=== PATIENT | male | born 1960 | race Caucasian/White ===

== ENCOUNTER 2017-04-11 19:22 | Inpatient (IN) | payer MEDICARE ==
[2017-04-11] MEDS ORDERED: DEXTROSE 5% IN WATER 50 ML BAG ONE (19:33)
[2017-04-11] MEDS ORDERED: AMIODARONE 50 MG/ML 3 ML VIAL IV ONE (19:33)
[2017-04-11] MEDS ORDERED: ASPIRIN 300 MG SUPP RECTAL STA (19:38)
[2017-04-11 19:54] LABS: CH 33.7; CHCM 35.7; HCT 47.8 % (39.0-53.0); HDW 2.65; HGB 17.2 gm/dL (13.0-17.5); MCH 34.1 pg (25.0-35.0); MCV 94.7 fL (80.0-100.0); Mean Platelet Volume 7.5; RBC 5.05 m/uL (4.30-5.90); RDW 12.9 % (11.5-15.5)
[2017-04-11] MEDS ORDERED: MIDAZOLAM HCL 100 MG in SODIUM CHLORIDE 0.9% 80 ML IV ONE (19:54)
[2017-04-11] MEDS ORDERED: fentaNYL (PF) 2,500 MCG in SODIUM CHLORIDE 0.9% 200 ML IV SCH (20:00)
[2017-04-11 20:03] LABS: Partial Thromboplastin Time 22.7 sec (22.0-30.0); Prothrombin Time 10.5 sec (9.0-12.0)
[2017-04-11] MEDS ORDERED: NALOXONE 0.4 MG/ML 1 ML VIAL IV PRN (20:07)
[2017-04-11] MEDS ORDERED: IV FLUID CONTINUATION 1,000 ML IV ONE (20:10)
[2017-04-11 20:13] LABS: ALT 57 U/L (21-72); AST 32 U/L (17-59); Alkaline Phosphatase 75 U/L (38-126); Anion Gap 12 mmol/L; Blood Urea Nitrogen 17 mg/dL (9-20); Calcium 9.8 mg/dL (8.4-10.2); Carbon Dioxide 27 mmol/L (22-30); Chloride 102 mmol/L (98-107); Glucose 106 mg/dL (74-99); Non-African American GFR(MDRD) >60 (>60 ml/min/1.73 sqM); Sodium 141 mmol/L (137-145); Total Bilirubin 0.8 mg/dL (0.2-1.3); Total Protein 7.2 g/dL (6.3-8.2)
[2017-04-11] MEDS ORDERED: MIDAZOLAM 2 MG/2 ML VIAL IVP ONE (20:13)
[2017-04-11] MEDS ORDERED: fentaNYL (PF) 50 MCG/ML 2 ML AMP IVP ONE (20:14)
[2017-04-11] MEDS ORDERED: SODIUM CHLORIDE 0.9% 1,000 ML IV ONE (20:15)
[2017-04-11] MEDS ORDERED: SODIUM CHLORIDE 0.9% 500 ML IV ONE (20:15)
[2017-04-11] MEDS ORDERED: NOREPINEPHRIN 4 MG-0.9% NS PMX 4 MG/250 ML ML IV ONE (20:20)
--- NOTE | 2017-04-11 20:23 | XR ---
EXAMINATION TYPE: XR chest 1V DATE OF EXAM: 04/11/2017 COMPARISON: NONE HISTORY: Tube placement TECHNIQUE: Single frontal view of the chest is obtained. FINDINGS: Endotracheal tube is in good position. Lungs are clear. There is no heart failure. Nasogas tric tube has tip in the gastric fundus. There are chest leads. IMPRESSION: No active cardiopulmonary disease.
[2017-04-11] MEDS ORDERED: LIDOCAINE 2% INJ 20 MG/ML SQ ONE (20:30)
[2017-04-11] MEDS ORDERED: BIVALIRUDIN BOLUS 250 MG/50 ML IV ONE (20:36)
[2017-04-11] MEDS ORDERED: BIVALIRUDIN 250 MG in SODIUM CHLORIDE 0.9% 50 ML IV ONE (20:37)
[2017-04-11] MEDS ORDERED: PRASUGREL 10 MG TAB ONE (21:05)
--- NOTE | 2017-04-11 21:05 | ED ---
General Adult HPI - General Chief complaint: Chest Pain Stated complaint: chest pain Time Seen by Provider: 04/11/17 19:45 Source: patient, family, RN notes reviewed Mode of arrival: wheelchair Limitations: no limitations - History of Present Illness Initial comments: 56-year-old male with history of tobacco use and hypercholesterolemia presents for evaluation of left anterior substernal chest tightness, nausea and diaphoresis. This began approximately 30 minutes prior to arrival. Time of my initial evaluation 1926. EKG obtained at that time shows acute VT. STEMI code was activated. Remainder of the history was limited secondary to clinical condition. - Related Data Home Medications Medication Instructions Recorded Confirmed HYDROcodone/APAP 10-325MG [[place] 1 tab PO Q6H PRN 08/09/15 04/11/17 10-325] Atorvastatin Calcium [Lipitor] 10 mg PO DAILY 04/11/17 04/11/17 Allergies Allergy/AdvReac Type Severity Reaction Status Date / Time latex Allergy Rash/Hives Verified 04/11/17 19:59 Penicillins Allergy Unknown Verified 04/11/17 19:59 Review of Systems ROS Statement: Those systems with pertinent positive or pertinent negative responses have been documented in the HPI. Limitations: ROS unobtainable due to patients medical condition Past Medical History Past Medical History: GERD/Reflux, Hypertension Additional Past Medical History / Comment(s): UMBILICAL HERNIA, SKIN TO FINGERS PEELS, current belles palsy History of Any Multi-Drug Resistant Organisms: None Reported Past Surgical History: Appendectomy, Hernia Repair Additional Past Surgical History / Comment(s): LT LOWER ABD HERNIA REPAIR Past Anesthesia/Blood Transfusion Reactions: Motion Sickness Additional Past Anesthesia/Blood Transfusion Reaction / Comment(s): STATES "MOTHER HAS PONV" Past Psychological History: No Psychological Hx Reported Smoking Status: Current every day smoker - Past Family History Father Family Medical History: Congestive Heart Failure (CHF) Mother Family Medical History: Cancer Additional Family Medical History / Comment(s): SKIN General Exam Limitations: no limitations General appearance: alert, in distress Head exam: Present: atraumatic, normocephalic Eye exam: Present: normal appearance, PERRL ENT exam: Present: normal exam, mucous membranes moist Respiratory exam: Present: normal lung sounds bilaterally. Absent: respiratory distress Cardiovascular Exam: Present: regular rate, normal rhythm GI/Abdominal exam: Present: soft. Absent: distended, tenderness Extremities exam: Present: normal capillary refill. Absent: pedal edema Neurological exam: Present: alert, oriented X3 Psychiatric exam: Present: normal affect, normal mood, anxious Skin exam: Present: warm, diaphoretic Course Vital Signs 04/11/17 19:25 Temperature 98 F Pulse Rate 71 Respiratory 20 Rate Blood Pressure 166/109 O2 Sat by Pulse 100 Oximetry EKG Findings - EKG Comments: EKG Findings:: EKG obtained at 1926 shows acute inferior STEMI with reciprocal change, rate of 70, MT interval 1:30, QS duration 100, QTC 404, repeat EKG status post V. fib arrest obtained at 1936 shows acute inferior VT with reciprocal change, ventricular 90, MT interval 98, QRS duration 100, QTC 396. Procedures - Intubation Time Out Performed: Yes Sedative: Etomidate Paralytic: Succinylcholine Laryngoscope: Mario Alberto Size: 4 ET Tube Size: 7.5 ET Tube Uncuffed: Yes Tube Secured Depth (cm): 23 Tube Secured Location: lips Tube Placement Confirmation: visualized tube passing through cords, equal breath sounds bilaterally, confirmation by capnometry Patient Tolerated Procedure: well Intubation Complications: none Medical Decision Making - Medical Decision Making 56-year-old male presenting with acute inferior VT. Initial EKG obtained at 1926, cathode washer activated at 1928. Creatinine initial evaluation, the patient to become unresponsive, posturing, was noted to be in V. fib arrest, chest compressions were initiated immediately, patient was defibrillated with 200 J. He was loaded with 300 mg of amiodarone. Patient did return to normal sinus rhythm, became somewhat more responsive, however he was vomiting and was intubated for airway protection. Patient was placed on sedation emergency department awaiting cardiac intervention. He was loaded with heparin, given rectal aspirin. Case was discussed with cardiology on-call. Diagnosis: Inferior STEMI, V. fib arrest, ventricular respiratory failure - Lab Data Result diagrams: 04/11/17 19:50 04/11/17 19:50 Lab Results 04/11/17 04/11/17 04/11/17 Range/Units 19:50 19:50 19:50 WBC 8.0 (3.8-10.6) k/uL RBC 5.05 (4.30-5.90) m/uL Hgb 17.2 (13.0-17.5) gm/dL Hct 47.8 (39.0-53.0) % MCV 94.7 (80.0-100.0) fL MCH 34.1 (25.0-35.0) pg MCHC 36.0 (31.0-37.0) g/dL RDW 12.9 (11.5-15.5) % Plt Count 193 (150-450) k/uL PT (9.0-12.0) sec INR (<1.2) APTT (22.0-30.0) sec Sodium 141 (137-145) mmol/L Potassium 4.0 (3.5-5.1) mmol/L Chloride 102 (98-107) mmol/L Carbon Dioxide 27 (22-30) mmol/L Anion Gap 12 mmol/L BUN 17 (9-20) mg/dL Creatinine 1.05 (0.66-1.25) mg/dL Est GFR (MDRD) Af Amer >60 (>60 ml/min/1.73 sqM) Est GFR (MDRD) Non-Af >60 (>60 ml/min/1.73 sqM) Glucose 106 H (74-99) mg/dL Calcium 9.8 (8.4-10.2) mg/dL Total Bilirubin 0.8 (0.2-1.3) mg/dL AST 32 (17-59) U/L ALT 57 (21-72) U/L Alkaline Phosphatase 75 (38-126) U/L Troponin I 0.016 (0.000-0.034) ng/mL Total Protein 7.2 (6.3-8.2) g/dL Albumin 4.6 (3.5-5.0) g/dL 04/11/17 Range/Units 19:50 WBC (3.8-10.6) k/uL RBC (4.30-5.90) m/uL Hgb (13.0-17.5) gm/dL Hct (39.0-53.0) % MCV (80.0-100.0) fL MCH (25.0-35.0) pg MCHC (31.0-37.0) g/dL RDW (11.5-15.5) % Plt Count (150-450) k/uL PT 10.5 (9.0-12.0) sec INR 1.0 (<1.2) APTT 22.7 (22.0-30.0) sec Sodium (137-145) mmol/L Potassium (3.5-5.1) mmol/L Chloride (98-107) mmol/L Carbon Dioxide (22-30) mmol/L Anion Gap mmol/L BUN (9-20) mg/dL Creatinine (0.66-1.25) mg/dL Est GFR (MDRD) Af Amer (>60 ml/min/1.73 sqM) Est GFR (MDRD) Non-Af (>60 ml/min/1.73 sqM) Glucose (74-99) mg/dL Calcium (8.4-10.2) mg/dL Total Bilirubin (0.2-1.3) mg/dL AST (17-59) U/L ALT (21-72) U/L Alkaline Phosphatase (38-126) U/L Troponin I (0.000-0.034) ng/mL Total Protein (6.3-8.2) g/dL Albumin (3.5-5.0) g/dL Critical Care Time Critical Care Time: Yes Total Critical Care Time: 35 Disposition Clinical Impression: ST elevation myocardial infarction (STEMI) Disposition: ADMITTED IP TO THIS [facility] Condition: Serious Decision to Admit Reason: Admit from EC
[2017-04-11] MEDS ORDERED: PRASUGREL 10 MG TAB OG-TUBE ONE (21:12)
[2017-04-11] MEDS ORDERED: NITROGLYCERIN SL TABS 0.4 MG TAB SUBLINGUAL PRN (21:18)
[2017-04-11] MEDS ORDERED: ATROPINE SULFATE 0.1 MG/ML 10ML SYRINGE IV PRN (21:18)
[2017-04-11] MEDS ORDERED: ZOLPIDEM 5 MG TAB PO PRN (21:18)
[2017-04-11] MEDS ORDERED: RX INFO: IV CONTRAST WAS GIVEN 1 EACH MISC MISCELLANE PRN (21:18)
[2017-04-11] MEDS ORDERED: MAG HYDROX/AL HYDROX/SIMETH 30 ML CUP PO PRN (21:18)
--- NOTE | 2017-04-11 21:26 | P.CRDCN ---
History of Present Illness Consult date: 04/11/17 History of present illness: This is a 56-year-old gentleman who presented to the emergency room complaining of chest discomfort and was diagnosed with acute inferior ST elevation myocardial infarction. In the ER he developed cardiac arrest was V. fib and he was converted to normal sinus mechanism. 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 Currently the patient is intubated and he is on ventilator. Beside that he is on propofol drip because he was very agitated. According to his family, the patient has hypertension and dyslipidemia and he is a smoker. 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 He has no residual CAD involving the LAD or the RCA. The patient is going to be admitted to the intensive care unit. Wet Wash Assembler will be consulted to see the patient and manage the ventilator. Currently he is hemodynamically unstable and he is requiring small dose of Levophed and thus likely to be related to propofol inducing the hypotension. He is on dual antiplatelet therapy with aspirin as well as Effient. He is also on statin. I will hold any kind of beta julius until he is off the Levophed. Beside that I'll obtain an echocardiogram was Doppler. Past Medical History Past Medical History: GERD/Reflux, Hypertension Additional Past Medical History / Comment(s): UMBILICAL HERNIA, SKIN TO FINGERS PEELS, current belles palsy History of Any Multi-Drug Resistant Organisms: None Reported Past Surgical History: Appendectomy, Hernia Repair Additional Past Surgical History / Comment(s): LT LOWER ABD HERNIA REPAIR Past Anesthesia/Blood Transfusion Reactions: Motion Sickness Additional Past Anesthesia/Blood Transfusion Reaction / Comment(s): STATES "MOTHER HAS PONV" Past Psychological History: No Psychological Hx Reported Smoking Status: Current every day smoker - Past Family History Father Family Medical History: Congestive Heart Failure (CHF) Mother Family Medical History: Cancer Additional Family Medical History / Comment(s): SKIN Medications and Allergies Home Medications Medication Instructions Recorded Confirmed Type HYDROcodone/APAP 10-325MG [[place] 1 tab PO Q6H PRN 08/09/15 04/11/17 History 10-325] Atorvastatin Calcium [Lipitor] 10 mg PO DAILY 04/11/17 04/11/17 History Allergies Allergy/AdvReac Type Severity Reaction Status Date / Time latex Allergy Rash/Hives Verified 04/11/17 19:59 Penicillins Allergy Unknown Verified 04/11/17 19:59 Physical Exam Vitals: Vital Signs Temp Pulse Resp BP Pulse Ox 04/11/17 20:37 103 H 143/66 97 04/11/17 19:25 98 F 71 20 166/109 100 Intake and Output 04/11/17 04/11/17 04/11/17 06:59 14:59 22:59 Other: Weight 108.862 kg Patient Weight 04/12/17 06:59 Weight 108.862 kg - Constitutional General appearance: no acute distress - Respiratory Respiratory: bilateral: CTA - Cardiovascular Rhythm: regular Heart sounds: normal: S1, S2 Results 04/11/17 19:50 04/11/17 19:50 Cardiac Enzymes 04/11/17 04/11/17 Range/Units 19:50 19:50 AST 32 (17-59) U/L Troponin I 0.016 (0.000-0.034) ng/mL Coagulation 04/11/17 Range/Units 19:50 PT 10.5 (9.0-12.0) sec APTT 22.7 (22.0-30.0) sec CBC 04/11/17 Range/Units 19:50 WBC 8.0 (3.8-10.6) k/uL RBC 5.05 (4.30-5.90) m/uL Hgb 17.2 (13.0-17.5) gm/dL Hct 47.8 (39.0-53.0) % Plt Count 193 (150-450) k/uL Comprehensive Metabolic Panel 04/11/17 Range/Units 19:50 Sodium 141 (137-145) mmol/L Potassium 4.0 (3.5-5.1) mmol/L Chloride 102 (98-107) mmol/L Carbon Dioxide 27 (22-30) mmol/L BUN 17 (9-20) mg/dL Creatinine 1.05 (0.66-1.25) mg/dL Glucose 106 H (74-99) mg/dL Calcium 9.8 (8.4-10.2) mg/dL AST 32 (17-59) U/L ALT 57 (21-72) U/L Alkaline Phosphatase 75 (38-126) U/L Total Protein 7.2 (6.3-8.2) g/dL Albumin 4.6 (3.5-5.0) g/dL Current Medications Generic Name Dose Route Start Last Admin Trade Name Freq PRN Reason Stop Dose Admin Al Hydroxide/Mg Hydroxide 30 ml 04/11/17 21:18 Maalox PO Q4HR PRN Heartburn Aspirin 325 mg 04/12/17 09:00 Aspirin PO DAILY PENDING SALE TO [facility] Atorvastatin Calcium 80 mg 04/12/17 21:00 Lipitor PO HS GISELE Atropine Sulfate 0.5 mg 04/11/17 21:18 Atropine IV ONCE PRN Symptomatic Bradycardia Fentanyl Citrate 2,500 mcg/ 250 mls @ 7.5 mls/hr 04/11/17 20:00 Sodium Chloride IV .Q24H GISELE 75 MCG/HR Midazolam HCl 100 mg/ Sodium 100 mls @ 2 mls/hr 04/11/17 19:54 Chloride IV 04/12/17 19:53 .Q24H ONE Protocol 2 MG/HR Sodium Chloride 1,000 mls @ 100 mls/hr 04/11/17 21:30 Saline 0.9% IV 04/12/17 05:31 .Q10H PENDING SALE TO [facility] Miscellaneous Information 1 each 04/11/17 21:18 Rx Info: Iv Contrast Was Given MISCELLANE 04/13/17 21:18 DAILY PRN Per Protocol Naloxone HCl 0.2 mg 04/11/17 20:07 Narcan IV Q2M PRN Opioid Reversal Nitroglycerin 0.4 mg 04/11/17 21:18 Nitrostat SUBLINGUAL Q5M PRN Chest Pain Prasugrel 10 mg 04/12/17 21:19 Effient PO DAILY PENDING SALE TO [facility] Zolpidem Tartrate 5 mg 04/11/17 21:18 Ambien PO HS PRN Insomnia Intake and Output 04/11/17 04/11/17 04/11/17 06:59 14:59 22:59 Other: Weight 108.862 kg Patient Weight 04/12/17 06:59 Weight 108.862 kg 04/11/17 19:50 04/11/17 19:50 Assessment and Plan Plan: Assessment Acute inferior ST elevation myocardial infarction Significant history of smoking Acute respiratory failure Hypotension Plan Status post PCI of the LCx Dual antiplatelet therapy and statin ICU admission and consult university administrator Wean him from the Levophed Echocardiogram was Doppler Follow-up with the patient
[2017-04-11] MEDS ORDERED: IODIXANOL 320 MG/ML 100 ML INTRAARTER ONE (21:30)
[2017-04-11] MEDS ORDERED: SODIUM CHLORIDE 0.9% 1,000 ML IV SCH (21:30)
[2017-04-11 22:04] LABS: Glucose,Whole Blood 115 mg/dL (75-99)
[2017-04-11] MEDS ORDERED: PROPOFOL 1,000 MG/100 ML VIAL IV ONE (22:18)
[2017-04-11] MEDS ORDERED: NOREPINEPHRIN 4 MG-0.9% NS PMX 4 MG/250 ML ML IV SCH (23:45)
[2017-04-12] MEDS: HEPARIN SODIUM,PORCINE 5,000 UNIT/ML 1 ML VIAL SQ SCH ×4 (01:22→20:05)
[2017-04-12] MEDS: PROPOFOL 1,000 MG/100 ML VIAL IV SCH ×3 (01:23→08:49)
[2017-04-12 02:44] VITALS: BMI 35.4
[2017-04-12 04:39] LABS: Basophils % (A) 0 %; CH 34.3; CHCM 34.8; Eosinophils # (A) 0.1 k/uL (0-0.7); Eosinophils % (A) 1 %; HDW 2.58; HGB 15.3 gm/dL (13.0-17.5); Luc # (Auto) 0.12; Luc % (Auto) 2; Lymphocytes # (A) 1.2 k/uL (1.0-4.8); Lymphocytes % (A) 16 %; MCH 33.1 pg (25.0-35.0); MCHC 33.3 g/dL (31.0-37.0); MCV 99.1 fL (80.0-100.0); Mean Platelet Volume 8.3; Monocytes # (A) 0.6 k/uL (0-1.0); Monocytes % (A) 8 %; Neutrophils # (A) 5.5 k/uL (1.3-7.7); Neutrophils % (A) 74 %; RBC 4.64 m/uL (4.30-5.90); RDW 14.1 % (11.5-15.5); WBC 7.5 k/uL (3.8-10.6); WBC (Perox) 6.97
[2017-04-12 04:50] LABS: Anion Gap 8 mmol/L; Blood Urea Nitrogen 16 mg/dL (9-20); Calcium 8.5 mg/dL (8.4-10.2); Carbon Dioxide 23 mmol/L (22-30); Chloride 108 mmol/L (98-107); Glucose 121 mg/dL (74-99); Magnesium 1.8 mg/dL (1.6-2.3); Non-African American GFR(MDRD) >60 (>60 ml/min/1.73 sqM); Phosphorous 3.6 mg/dL (2.5-4.5); Potassium 4.5 mmol/L (3.5-5.1); Sodium 139 mmol/L (137-145)
[2017-04-12 05:32] LABS: ABG Base Excess -1.2 mmol/L; ABG HCO3 23 mmol/L (21-25); ABG PCO2 38 mmHg (35-45); ABG PO2 115 mmHg (83-108); ABG TCO2 24 mmol/L (19-24)
--- NOTE | 2017-04-12 07:02 | XR ---
EXAMINATION TYPE: XR chest 1V portable DATE OF EXAM: 04/12/2017 HISTORY: Tube placement. REFERENCE: Previous study dated 04/11/2017. FINDINGS: The patient is ET tube and NG tube remain in place, unchanged in appearance. The heart is enlarged. There is mild peribronchial cuffing. There is some left basilar airspace disea se. I cannot exclude a small left effusion. IMPRESSION: WORSENING LEFT BASILAR AIRSPACE DISEASE.
[2017-04-12] MEDS: MAGNESIUM SULFATE-D5W PMX 1 GM in DEXTROSE/WATER 1 100ML.BAG IVPB SCH ×2 (07:15→08:48)
--- NOTE | 2017-04-12 08:47 | P.PN ---
Subjective Principal diagnosis: Acute inferior ST elevation [place] This is a pleasant 56-year-old gentleman with history of smoking and dyslipidemia who presented to the hospital with a chest discomfort and was diagnosed with acute inferior STEMI. 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 In the ER, the patient developed V. fib and he was converted as well as he was intubated. Currently the patient is intubated and he is on ventilator. Fishing Reel Assembler is on the case. Hemodynamically he is stable. I recommended continue the current medical treatment which included dual antiplatelet therapy and statin, I will start the patient on small dose of beta julius as well as TAVARES inhibitor, and we will follow-up with the echocardiogram which was performed Objective - Vital Signs Vital signs: Vital Signs Temp 98.3 F 04/12/17 04:00 Pulse 66 04/12/17 07:00 Resp 16 04/12/17 06:00 BP 121/77 04/12/17 07:00 Pulse Ox 98 04/12/17 07:00 Intake & Output 04/11/17 04/12/17 04/12/17 18:59 06:59 18:59 Intake Total 2364.886 100 Output Total 775 175 Balance 1589.886 -75 Weight 105 kg Intake: IV 2311 100 Magnesium Sulfate-D5w Pmx 100 1 gm In Dextrose/Water 1 100ml.bag @ 100 mls/hr IVPB Q1H GISELE Rx#: [id number] Sodium Chloride 0.9% 1, 800 000 ml @ 100 mls/hr IV . Q10H GISELE Rx#:[id number] Intake, IV Titration 53.886 Amount Propofol 1,000 mg In 100 53.886 ml @ Titrate IV .Q0M GISELE Rx#:[id number] Output: Urine 775 175 Other: Voiding Method Indwelling Catheter - Constitutional General appearance: Present: no acute distress - Respiratory Respiratory: bilateral: rales - Cardiovascular Rhythm: regular Heart sounds: normal: S1, S2 - Labs CBC & Chem 7: 04/12/17 04:12 04/12/17 04:12 Labs: Abnormal Lab Results - Last 24 Hours (Table) 04/11/17 04/11/17 04/12/17 Range/Units 19:50 22:02 04:12 ABG pO2 (83-108) mmHg ABG O2 Saturation (94-97) % Chloride 108 H (98-107) mmol/L Glucose 106 H 121 H (74-99) mg/dL POC Glucose (mg/dL) 115 H (75-99) mg/dL 04/12/17 Range/Units 04:50 ABG pO2 115 H (83-108) mmHg ABG O2 Saturation 99.0 H (94-97) % Chloride (98-107) mmol/L Glucose (74-99) mg/dL POC Glucose (mg/dL) (75-99) mg/dL Assessment and Plan Plan: Assessment Acute inferior ST elevation myocardial infarction Significant history of smoking Acute respiratory failure Plan Status post PCI of the LCx Dual antiplatelet therapy and statin Start metoprolol and lisinopril Follow-up on the echocardiogram
[2017-04-12 08:49] LABS: Amorphous Sediment,Urine Occasional /hpf; Appearance,Urine Turbid (Clear); Bilirubin,Urine Negative (Negative); Glucose,Urine (UA) Negative (Negative); Ketones,Urine Negative (Negative); Leukocyte Esterase,Urine Small (Negative); Mucus,Urine Few /hpf; Nitrite,Urine Negative (Negative); Particle Count 11406; Protein,Urine 1+ (Negative); Specific Gravity,Urine 1.044 (1.001-1.035); UA Billing (MACRO vs. MICRO) MICRO; Urobilinogen,Urine <2.0 mg/dL (<2.0); WBC,Urine 1 /hpf (0-5)
[2017-04-12] MEDS: ASPIRIN 325 MG TAB PO SCH (08:49)
[2017-04-12] MEDS ORDERED: CHLORHEXIDINE GLUCONATE 15 ML CUP MUCOUS MEM SCH (09:00)
[2017-04-12] MEDS ORDERED: PANTOPRAZOLE 40 MG/10 ML VIAL IV SCH (09:00)
[2017-04-12] MEDS: METOPROLOL TARTRATE 12.5 MG TAB PO SCH ×2 (09:09→20:01)
[2017-04-12] MEDS: LISINOPRIL 2.5 MG TAB PO SCH (09:09)
--- NOTE | 2017-04-12 11:11 | ECHOF ---
Referral Reason:stemi MEASUREMENTS -------- HEIGHT: 175.3 cm WEIGHT: 104.8 kg BP: 116/76 RVIDd: 2.4 cm (< 3.3) IVSd: 1.1 cm (0.6 - 1.1) LVIDd: 5.7 cm (3.9 - 5.3) LVPWd: 1.2 cm (0.6 - 1.1) IVSs: 1.7 cm LVIDs: 4.7 cm LVPWs: 1.6 cm LAESV Index (A-L): 12.73 ml/m Ao Diam: 3.9 cm (2.0 - 3.7) AV Cusp: 2.0 cm (1.5 - 2.6) LA Diam: 3.3 cm (2.7 - 3.8) MV EXCURSION: 24.295 mm (> 18.000) MV EF SLOPE: 193 mm/s (70 - 150) EPSS: 1.6 cm MV E Prashant: 0.58 m/s MV DecT: 232 ms MV A Prashant: 0.68 m/s MV E/A Ratio: 0.86 RAP: 5.00 mmHg RVSP: 11.86 mmHg FINDINGS -------- Sinus rhythm. This was a technically adequate study. There is borderline concentric left ventricular hypertrophy. Overall left ventricular systolic function is moderate-severely impaired with, an EF between 30 - 35 %. Mid lateral LV wall motion is hypokinetic. Mid posterior LV wall motion is hypokinetic. Inferiorlateral Hypokinesis The right ventricle is normal in size and function. Normal LA size by volume 22+/-6 ml/m2. The right atrium is normal in size. Aortic valve is trileaflet and is mildly thickened. There is no evidence of aortic regurgitation. There is no evidence of aortic stenosis. The mitral valve leaflets are mildly thickened. There is trace mitral regurgitation. Trace tricuspid regurgitation present. There is no evidence of pulmonary hypertension. The right ventricular systolic pressure, as measured by Doppler, is 11.86mmHg. The pulmonic valve was not well visualized. The aortic root size is normal. The inferior vena cava is mildly dilated. The pericardium is normal. There is no pericardial effusion. CONCLUSIONS -------- 1. Sinus rhythm. 2. The mitral valve leaflets are mildly thickened. 3. There is trace mitral regurgitation. 4. Trace tricuspid regurgitation present. 5. There is no evidence of pulmonary hypertension. 6. The right ventricular systolic pressure, as measured by Doppler, is 11.86mmHg. 7. The pulmonic valve was not well visualized. 8. The aortic root size is normal. 9. The inferior vena cava is mildly dilated. 10. There is no pericardial effusion. 11. This was a technically adequate study. 12. There is borderline concentric left ventricular hypertrophy. 13. Overall left ventricular systolic function is moderate-severely impaired with, an EF between 30 - 35 %. 14. Mid lateral LV wall motion is hypokinetic. 15. Mid posterior LV wall motion is hypokinetic. 16. Inferiorlateral Hypokinesis 17. Normal LA size by volume 22+/-6 ml/m2. 18. Aortic valve is trileaflet and is mildly thickened. LICENSED THERAPIST: Isra Bonilla RDCS
--- NOTE | 2017-04-12 11:13 | P.CNPUL ---
History of Present Illness Consult date: 04/12/17 Requesting physician: Arian Jackson Reason for consult: other (Mechanical ventilator/critical care management) Chief complaint: Chest pain History of present illness: This is a very pleasant 56-year-old gentleman who follows with Dr. Schroeder as his primary care physician. He has a history of hyperlipidemia and chronic tobacco use. He had been having chest discomfort on and off for approximately a month now. He felt as if he had strained a muscle. Yesterday the left anterior and substernal chest discomfort was quite severe causing nausea and diaphoresis. Approximately 30 minutes later he arrived to the emergency room and EKG did show evidence of an acute myocardial infarction and a STEMI code was activated. The patient did develop a ventricular fibrillation arrest and was successfully defibrillated, receive CPR, received amiodarone bolus and had return of spontaneous circulation to sinus rhythm. He was intubated and placed on mechanical ventilator to protect his airway. He was taken to the Account Retention Representative and had undergone stenting to a totally occluded mid left circumflex artery. He is seen today in consultation in the intensive care unit. He is currently intubated on mechanical ventilator at assist control mode of 14, tidal volume 500, FiO2 40% and a PEEP of 5. Morning blood gases reveal a pO2 of 115, pCO2 38 , pH 7.40. He is given a sedation holiday and is awake and alert and following commands. His weaning parameters are good along with RSBI of 26 and a positive cuff leak test. His chest x-ray does reveal some left basilar airspace disease. CBC and electrolytes are within normal limits. Review of Systems ROS unobtainable: due to endotracheal tube Past Medical History Past Medical History: GERD/Reflux, Hypertension Additional Past Medical History / Comment(s): UMBILICAL HERNIA, SKIN TO FINGERS PEELS, current belles palsy History of Any Multi-Drug Resistant Organisms: None Reported Past Surgical History: Appendectomy, Hernia Repair Additional Past Surgical History / Comment(s): LT LOWER ABD HERNIA REPAIR Past Anesthesia/Blood Transfusion Reactions: Motion Sickness Additional Past Anesthesia/Blood Transfusion Reaction / Comment(s): STATES "MOTHER HAS PONV" Past Psychological History: No Psychological Hx Reported Smoking Status: Current every day smoker - Past Family History Father Family Medical History: Congestive Heart Failure (CHF) Mother Family Medical History: Cancer Additional Family Medical History / Comment(s): SKIN Medications and Allergies Home Medications Medication Instructions Recorded Confirmed Type HYDROcodone/APAP 10-325MG [[place] 1 tab PO Q6H PRN 08/09/15 04/11/17 History 10-325] Atorvastatin Calcium [Lipitor] 10 mg PO DAILY 04/11/17 04/11/17 History Allergies Allergy/AdvReac Type Severity Reaction Status Date / Time latex Allergy Rash/Hives Verified 04/11/17 19:59 Penicillins Allergy Unknown Verified 04/11/17 19:59 Physical Exam Vitals: Vital Signs Temp Pulse Resp BP Pulse Ox 04/12/17 10:00 65 14 124/79 99 04/12/17 09:00 71 16 122/78 97 04/12/17 08:00 98.9 F 68 16 110/78 100 04/12/17 07:00 66 121/77 98 04/12/17 06:00 68 16 116/76 99 04/12/17 05:00 68 16 113/75 99 04/12/17 04:00 98.3 F 69 16 112/70 100 04/12/17 03:00 67 16 117/77 99 04/12/17 02:00 65 16 116/77 100 04/12/17 01:00 64 16 110/78 100 04/12/17 00:00 98.2 F 59 L 16 106/71 100 04/11/17 23:00 58 L 16 100/63 100 04/11/17 22:03 98.3 F 04/11/17 22:00 62 04/11/17 20:53 100 04/11/17 20:37 103 H 143/66 97 04/11/17 19:25 98 F 71 20 166/109 100 Intake and Output 04/11/17 04/12/17 04/12/17 22:59 06:59 14:59 Intake Total 1511 853.886 351.427 Output Total 775 1100 Balance 1511 78.886 -748.573 Intake: IV 1511 800 260 Magnesium Sulfate-D5w Pmx 200 1 gm In Dextrose/Water 1 100ml.bag @ 100 mls/hr IVPB Q1H G[facility] Rx#: [id number] Sodium Chloride 0.9% 1, 800 60 000 ml @ 100 mls/hr IV . Q10H [facility] Rx#:[id number] Intake, IV Titration 53.886 91.427 Amount Propofol 1,000 mg In 100 53.886 85.727 ml @ Titrate IV .Q0M [facility] Rx#:[id number] fentaNYL (PF) 2,500 mcg 5.7 In Sodium Chloride 0.9% 200 ml @ 75 MCG/HR 7.5 mls/hr IV .Q24H G[facility]LE Rx#: [id number] Output: Urine 775 1100 Other: Voiding Method Indwelling Catheter Indwelling Catheter Weight 108.862 kg 105 kg GENERAL EXAM: Alert, active, comfortable in no apparent distress. HEAD: Normocephalic. EYES: Normal reaction of pupils, equal size. NOSE: Clear with pink turbinates. THROAT: Oral endotracheal and gastric tube secured in place. No erythema or exudates. NECK: No masses, no JVD. CHEST: No chest wall deformity. LUNGS: Equal air entry with crackles in the left posterior base. CVS: S1 and S2 normal with no audible murmurs, regular rhythm. ABDOMEN: No hepatosplenomegaly, normal bowel sounds, no guarding or rigidity. SPINE: No scoliosis or deformity SKIN: No rashes CENTRAL NERVOUS SYSTEM: No focal deficits, tone is normal in all 4 extremities. Extremities: There is no significant peripheral edema. No clubbing, no cyanosis. Peripheral pulses are intact. Results - Laboratory Findings CBC and BMP: 04/12/17 04:12 04/12/17 04:12 ABG ABG pH 7.40 (7.35-7.45) 04/12/17 04:50 ABG pCO2 38 mmHg (35-45) 04/12/17 04:50 ABG pO2 115 mmHg (83-108) H 04/12/17 04:50 ABG O2 Saturation 99.0 % (94-97) H 04/12/17 04:50 PT/INR, D-dimer PT 10.5 sec (9.0-12.0) 04/11/17 19:50 INR 1.0 (<1.2) 04/11/17 19:50 Abnormal lab findings: Abnormal Labs 04/11/17 04/11/17 04/12/17 19:50 22:02 04:12 ABG pO2 ABG O2 Saturation Chloride 108 H Glucose 106 H 121 H POC Glucose (mg/dL) 115 H Ur Specific [place]ila Urine Protein Urine Blood Ur Leukocyte Esterase Amorphous Sediment Urine Mucus 04/12/17 04/12/17 04:50 06:00 ABG pO2 115 H ABG O2 Saturation 99.0 H Chloride Glucose POC Glucose (mg/dL) Ur Specific [place] 1.044 H Urine Protein 1+ H Urine Blood Moderate H Ur Leukocyte Esterase Small H Amorphous Sediment Occasional H Urine Mucus Few H - Diagnostic Findings Chest x-ray: image reviewed Assessment and Plan Plan: Impression: #[address] segment myocardial infarction with subsequent ventricular fibrillation arrest. Status post stenting to the totally occluded circumflex artery. #2 Acute hypoxic respiratory failure requiring intubation mechanical ventilatory support secondary to above. #3 Chronic and ongoing tobacco dependence. #4 Hyperlipidemia. Plan: The patient was seen and evaluated by Dr. Noguera. His chest x-ray, ABGs and labs were reviewed. His weaning parameters were excellent. He is awake and alert and following commands. He was successfully extubated 2 2 L/m per nasal cannula. He is currently up in the chair at the bedside. He is educated regarding his current status. He is also educated regarding the importance of complete smoking cessation. He has been initiated on Effient and aspirin. He remains on atorvastatin and lisinopril. He is on heparin subcutaneous for DVT prophylaxis and Protonix for GI prophylaxis. We will continue to monitor him here closely in the intensive care unit. We will continue to follow and make further recommendations based on his clinical status. Time with Patient: Greater than 30
--- NOTE | 2017-04-12 13:54 | CC ---
DATE OF SERVICE: 04/11/2017 PERFORMING PHYSICIAN: JOEL LOVE MD, STAFF ANESTHESIOLOGIST PROCEDURE PERFORMED: 1. Selective right and left coronary angiogram. 2. Left heart catheterization. 3. Successful stenting of the mid-left circumflex using 3.75 x 15 mm Xience ASIM with a good angiographic result. INDICATION: This is a pleasant 56-year-old gentleman with hypertension, dyslipidemia, significant history of smoking, now presented to the hospital complaining of chest discomfort and was diagnosed with acute inferior ST- elevation myocardial infarction. APPROACH: Right common femoral artery. COMPLICATION: None. LEVEL OF SEDATION: Moderate with sedation length of 35 minutes. PROCEDURE DESCRIPTION: After obtaining an informed consent, the patient was brought to the Cardiac Order Caller. The right common femoral artery was cannulated using micropuncture technique and the micropuncture wire passed easily, then I applied a 6 Salvadorean sheath in the right common femoral artery with subsequent selective right and left coronary angiogram using JR4 guiding catheter and JL4 guiding catheters. After that, I did intervene on the left circumflex. After that, I did left heart catheterization using 6 Salvadorean Pigtail catheter. The procedure was completed without any complication. The procedure is selective coronary angiogram. 1. The RCA is a large caliber vessel and it is a dominant vessel. The RCA appeared to have mild disease in the midportion. Besides that, the proximal and distal portion are angiographically normal. The RCA distally bifurcates into PDA and PLV branches and both are angiographically normal. 2. The left main is angiographically normal, it bifurcates into the circumflex and left anterior descending artery. 3. The left circumflex is a large caliber vessel and it is a nondominant vessel. The proximal left circumflex appears to be angiographically normal with the mid-left circumflex gives rise into a large OM branch which is acutely occluded and the left circumflex continues after that as a medical caliber vessel in the AV groove. 5. The left anterior descending artery, the proximal LAD appeared to be angiographically normal. It gives rise into a large diag branch which seems to be angiographically normal. The mid and distal LAD appeared to be angiographically normal. 6. PCI of the left circumflex. Anticoagulation was initiated using Angiomax. Subsequently, I took JL4 guiding catheter and the left main was engaged. A Whisper wire was used to wire the left circumflex and cross the acute total occlusion. Subsequently, I did PTCA balloon using 2.5 x 12 mm balloon which was inflated under 12 atmospheres for 20 seconds. After that, I did deploy 3.75 x 15 mm Xience ASIM where the stent was positioned under fluoroscopic guidance and deployed under 16 atmospheres for 20 seconds. The following angiogram showed good angiographic results without perforation and without dissection. 7. The procedure was completed without any complication. HEMODYNAMICS: The left ventricular end diastolic pressure was 22 mmHg and no gradient was identified across the aortic valve. CONCLUSION: 1. Acute inferior ST elevation myocardial infarction. 2. Mild disease involving the right coronary artery. 3. Acute total occlusion of the left circumflex in the midportion with acute total occlusion of a large first obtuse marginal branch. 4. Normal left anterior descending artery. 5. Elevated left ventricular end-diastolic pressure. 6. Successful stenting of the mid left circumflex using 3.75 x 15 mm Xience ASIM with a good angiographic result. POSTPROCEDURE MANAGEMENT: 1. Dual antiplatelets therapy. 2. Risk status modifications. 3. Follow up with the patient. JULIETH
[2017-04-12] MEDS: IPRATROPIUM-ALBUTEROL 3 ML NEB INHALATION SCH ×3 (19:49→20:09)
[2017-04-12] MEDS: ATORVASTATIN 80 MG TAB PO SCH (20:01)
[2017-04-12] MEDS: PRASUGREL 10 MG TAB PO SCH (20:02)
[2017-04-12] MEDS: NICOTINE 21MG/24HR PATCH TRANSDERM SCH (20:05)
[2017-04-12] MEDS: ACETAMINOPHEN TAB 500 MG TAB PO PRN (20:18)
[2017-04-13] MEDS: PANTOPRAZOLE 40 MG TABLET PO SCH (06:30)
[2017-04-13 06:38] LABS: Basophils % (A) 0 %; CHCM 35.1; Eosinophils # (A) 0.1 k/uL (0-0.7); Eosinophils % (A) 1 %; HCT 42.3 % (39.0-53.0); HDW 2.52; HGB 14.8 gm/dL (13.0-17.5); Luc # (Auto) 0.16; Luc % (Auto) 2; Lymphocytes # (A) 1.7 k/uL (1.0-4.8); Lymphocytes % (A) 21 %; MCHC 34.9 g/dL (31.0-37.0); MCV 97.3 fL (80.0-100.0); Mean Platelet Volume 7.3; Monocytes # (A) 0.6 k/uL (0-1.0); Monocytes % (A) 7 %; Neutrophils # (A) 5.7 k/uL (1.3-7.7); Neutrophils % (A) 69 %; RBC 4.34 m/uL (4.30-5.90); RDW 13.1 % (11.5-15.5); WBC 8.2 k/uL (3.8-10.6); WBC (Perox) 8.01
--- NOTE | 2017-04-13 06:49 | XR ---
EXAMINATION TYPE: XR chest 1V portable DATE OF EXAM: 04/13/2017 HISTORY: Tube placement. REFERENCE: Previous study dated 04/12/2017.. FINDINGS: The patient is ET tube and NG tube been removed. The heart is mildly enlarged. There is vascular congestion and subtle interstitial change. No definit e pleural fluid is seen. IMPRESSION: SUBTLE CHANGES OF CONGESTIVE HEART FAILURE.
[2017-04-13 06:57] LABS: Anion Gap 6 mmol/L; Blood Urea Nitrogen 12 mg/dL (9-20); Calcium 8.7 mg/dL (8.4-10.2); Carbon Dioxide 29 mmol/L (22-30); Chloride 106 mmol/L (98-107); Glucose 105 mg/dL (74-99); Magnesium 1.9 mg/dL (1.6-2.3); Non-African American GFR(MDRD) >60 (>60 ml/min/1.73 sqM); Phosphorous 2.4 mg/dL (2.5-4.5); Potassium 3.8 mmol/L (3.5-5.1); Sodium 141 mmol/L (137-145)
[2017-04-13] MEDS: IPRATROPIUM-ALBUTEROL 3 ML NEB INHALATION SCH (07:15)
[2017-04-13] MEDS: HEPARIN SODIUM,PORCINE 5,000 UNIT/ML 1 ML VIAL SQ SCH ×3 (08:07→21:44)
[2017-04-13] MEDS: NICOTINE 21MG/24HR PATCH TRANSDERM SCH (08:07)
[2017-04-13] MEDS: ASPIRIN 325 MG TAB PO SCH (08:07)
[2017-04-13] MEDS: METOPROLOL TARTRATE 12.5 MG TAB PO SCH ×2 (08:07→21:44)
[2017-04-13] MEDS: LISINOPRIL 2.5 MG TAB PO SCH (08:07)
[2017-04-13] MEDS: PRASUGREL 10 MG TAB PO SCH (08:07)
[2017-04-13] MEDS: ACETAMINOPHEN TAB 500 MG TAB PO PRN (12:31)
--- NOTE | 2017-04-13 13:16 | HP ---
PRESENTING COMPLAINT: Chest pain. HISTORY OF PRESENTING COMPLAINT: This is a 56-year-old patient of Dr. Schroeder. Chronic stable medical conditions include GERD, hypertension, ventral hernia, hyperlipidemia. Patient decided to start doing workout, went to the gym for a 1 /2 hour. Subsequently, developed left-sided pressure, some radiation, short of breath. Pain was rather significant. The patient came to the ER, found to have ST elevation myocardial infarction in the inferior wall. Taken to the cardiac director of labor relations by Dr. Jackson emergently who put in a stent to the circumflex. The patient was overnight intubated, extubated this morning. Patient did have a run of V. fib in the ER and was cardioverted once. REVIEW OF SYSTEMS: CONSTITUTIONAL: Tired. HEENT: None. RESPIRATORY: Occasional wheezing and cough. CARDIOVASCULAR: As above. GASTROINTESTINAL: GERD. GENITOURINARY: None. MUSCULOSKELETAL: None. DERMATOLOGIC: None. HEMATOLOGIC: None. LYMPHATICS: None. PSYCHIATRY: None. NEUROLOGIC: None. PAST MEDICAL HISTORY: GERD, hypertension, ventral hernia, hyperlipidemia. PAST SURGICAL HISTORY: Appendectomy, hernia repair, left lower abdominal hernia repair. SOCIAL HISTORY: The patient has been smoking for close to 42 years. Has medical marijuana. Powell by [employer]. Has a girlfriend though he lives by himself. FAMILY HISTORY: Congestive heart failure. HOME MEDICATIONS: 1. Clay 10 one tablet q6h p.r.n. 2. Lipitor 10 mg a day. ALLERGIES: LATEX AND PENICILLIN. On examination, temperature 98.4, pulse 80, respirations 25, blood pressure 146/ 93, pulse ox 96% on 2 liters. GENERAL APPEARANCE: Well built. BMI 34.2. Laying in bed, not in distress. EYES: Pupils equal. Conjunctivae normal. Oral cavity, normal. NECK: JVP not raised. No masses palpable. LUNGS: Decreased breath sounds, mild wheezing. CARDIOVASCULAR: First and seconds normal. No edema. ABDOMEN: Soft, nontender. Liver and spleen not palpable. LYMPHATICS: No lymph node in the neck and axillae. PSYCHIATRY: Alert and oriented x3. Mood and affect normal. NEUROLOGIC: Cranial nerves grossly intact. Power and sensation grossly intact. INVESTIGATIONS: White count 7.5, hemoglobin 15.3, potassium 4.5. BUN and creatinine normal. Troponin 0.016, repeat 206 following the procedure. 2D echocardiogram shows EF of 30-35% and multiple wall hypokinesia. EKG shows ST elevation of the inferior leads. ASSESSMENT: 1. Acute inferior wall myocardial infarction, ST elevation type myocardial infarction. 2. Cardiac catheterization emergent with stent to the circumflex. 3. Ischemic cardiomyopathy, ejection fraction 30-35%. 4. Chronic nicotine dependence, patient is a smoker. 5. Obesity, body mass index greater than 30. 6. Hyperlipidemia. 7. Essential hypertension. 8. Chronic obstructive pulmonary disease in a current smoker. PLAN: The patient is currently on aspirin, Lipitor 80 mg, Zestril, Lopressor. The patient was counseled against smoking, began on nicotine patch. The patient is also on Effient. Will give breathing treatment. The patient should also see a telecommunications support. JULIETH
--- NOTE | 2017-04-13 13:40 | P.PN ---
Subjective Principal diagnosis: Acute inferior ST elevation MN This is a pleasant 56-year-old gentleman with history of smoking and dyslipidemia who presented to the hospital with a chest discomfort and was diagnosed with acute inferior STEMI. 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 In the ER, the patient developed V. fib and he was converted as well as he was intubated. The patient was extubated and then he was transferred into selective units. From the cardiovascular standpoint of view, he is doing well and he is asymptomatic. The echocardiogram showed impaired LV function with an ejection fraction of about 35%. Objective - Vital Signs Vital signs: Vital Signs Temp 96.6 F L 04/13/17 08:00 Pulse 88 04/13/17 08:00 Resp 16 04/13/17 11:25 BP 137/84 04/13/17 08:00 Pulse Ox 94 L 04/13/17 08:00 Intake & Output 04/12/17 04/13/17 04/13/17 18:59 06:59 18:59 Intake Total 411.427 Output Total 1745 Balance -1333.573 Weight 106.4 kg Intake: IV 320 Magnesium Sulfate-D5w Pmx 200 1 gm In Dextrose/Water 1 100ml.bag @ 100 mls/hr IVPB Q1H [facility] Rx#: [id number] Sodium Chloride 0.9% 1, 120 000 ml @ 100 mls/hr IV . Q10H [facility] Rx#:[id number] Intake, IV Titration 91.427 Amount Propofol 1,000 mg In 100 85.727 ml @ Titrate IV .Q0M [facility] Rx#:[id number] fentaNYL (PF) 2,500 mcg 5.7 In Sodium Chloride 0.9% 200 ml @ 75 MCG/HR 7.5 mls/hr IV .Q24H G[facility] Rx#: [id number] Output: Urine 1745 Other: Voiding Method Indwelling Catheter Toilet Urinal # Voids 1 2 # Bowel Movements 1 - Constitutional General appearance: Present: no acute distress - Labs CBC & Chem 7: 04/13/17 05:57 04/13/17 05:57 Labs: Abnormal Lab Results - Last 24 Hours (Table) 04/12/17 04/12/17 04/13/17 Range/Units 13:12 19:17 05:57 Plt Count 140 L (150-450) k/uL Glucose (74-99) mg/dL Phosphorus (2.5-4.5) mg/dL Troponin I 154.000 H* 117.000 H* (0.000-0.034) ng/mL 04/13/17 Range/Units 05:57 Plt Count (150-450) k/uL Glucose 105 H (74-99) mg/dL Phosphorus 2.4 L (2.5-4.5) mg/dL Troponin I (0.000-0.034) ng/mL Assessment and Plan Plan: Assessment Acute inferior ST elevation myocardial infarction Significant history of smoking Plan Status post PCI of the LCx Dual antiplatelet therapy and statin Follow-up with the patient
--- NOTE | 2017-04-13 16:05 | P.PN ---
<Ludmila Torres - Last Filed: 04/13/17 16:38> Progress Note - Text DATE OF SERVICE: 04/13/2017 PRESENTING COMPLAINT: Chest pain INTERVAL HISTORY: This a 56-year-old male who developed chest pain after doing a workout, presented to the emergency department, had ST elevation myocardial infarction in the inferior wall, V. tach arrest, cardioverted, was taken to the Percussion Teacher and had a stent placed to the circumflex. 04/13/2017: Patient seen on 6 E. selective. Lying in bed and appears comfortable, complains of chest soreness related to compressions being done and being cardioverted. No active chest pain. Ambulatory in the room and roberts ways, appetite is good eating 50-100% of his meals, moved his bowels today, does have a persistent cough. REVIEW OF SYSTEMS: Done for constitutional ,cardiovascular, GI, pulmonary with relevant findings as above. CURRENT MEDICATIONS Aspirin, Lipitor, atropine, Zestril, Lopressor, nicotine patch, Effient, Ambien. PHYSICAL EXAM VITAL SIGNS: Temperature 96.6, pulse 88, respiratory rate 16, blood pressure 137/84, oxygen saturation 94% on room air. GENERAL APPEARANCE: Lying in bed, not in distress. EYES: Pupils equal. Conjunctiva normal. NECK: JVD not raised. Mass not palpable. RESPIRATORY: Respiratory effort normal. Lungs diminished to auscultation. CARDIOVASCULAR: First and second sounds normal. No edema. ABDOMEN: Soft. Liver and spleen not palpable. No tenderness. No mass palpable. PSYCHIATRY: Alert and oriented x3. Mood and affect normal. INVESTIGATIONS: Platelet count 140, BMP unremarkable Chest x-ray: Subtle changes of congestive heart failure. ASSESSMENT: -Acute inferior wall myocardial infarction, ST elevation type myocardial infarction. - cardiac catheterization emergent with stent to the circumflex. -Ischemic cardiomyopathy ejection fraction 30-35% -Chronic nicotine dependence, patient is a smoker. -Obesity, body mass index greater than 30. -Hyperlipidemia. -Essential hypertension. -Chronic obstructive pulmonary disease in a smoker. -Thrombocytopenia unspecified PLAN: We'll continue aspirin, Lipitor, Zestril and Lopressor. Patient once again counseled about smoking cessation nicotine patch provided. Will also remain on Effient. Patient's girlfriend, mother and other family members at the bedside plan of care discussed with all present, questions answered. We will continue to monitor closely. IT SALES EXECUTIVE statement: Patient was seen and examined by nurse practitioner Ludmila Torres and all elements of the case discussed with attending Dr. Hines <Scooter Hines - Last Filed: 04/13/17 17:22> Progress Note - Text Attending note. Date of service-04/13/2017 This patient was seen and examined by me . I reviewed the note of my nurse practitioner, Ms. Torres. Discussed with her, additional findings as below. Acute ST elevation myocardial infarction. Has been up in the hallway. No dizziness or lightheadedness. No further chest pain On examination: Lungs-decreased breath sounds and mild wheezing, cardiovascular-first seconds are normal Investigations: Potassium 3.8 Assessment and plan: Acute inferior wall myocardial infarction, causing ischemic cardiomyopathy EF 30 -35% COPD in a smoker Thrombocytopenia-keep a close eye repeat CBC in the morning Continue other medication treatment plan care was discussed the patient and family the bedside
[2017-04-13] MEDS: ATORVASTATIN 80 MG TAB PO SCH (21:44)
[2017-04-14] MEDS: PANTOPRAZOLE 40 MG TABLET PO SCH (06:41)
[2017-04-14 06:49] LABS: Basophils # (A) 0.1 k/uL (0-0.2); Basophils % (A) 1 %; CH 34.7; CHCM 35.3; Eosinophils # (A) 0.2 k/uL (0-0.7); Eosinophils % (A) 2 %; HCT 46.8 % (39.0-53.0); HGB 15.6 gm/dL (13.0-17.5); Luc # (Auto) 0.17; Luc % (Auto) 2; Lymphocytes # (A) 1.6 k/uL (1.0-4.8); Lymphocytes % (A) 19 %; MCH 32.8 pg (25.0-35.0); MCHC 33.3 g/dL (31.0-37.0); MCV 98.5 fL (80.0-100.0); Mean Platelet Volume 7.7; Monocytes # (A) 0.6 k/uL (0-1.0); Monocytes % (A) 7 %; Neutrophils # (A) 5.7 k/uL (1.3-7.7); Neutrophils % (A) 69 %; RBC 4.75 m/uL (4.30-5.90); RDW 13.7 % (11.5-15.5); WBC 8.3 k/uL (3.8-10.6); WBC (Perox) 8.04
[2017-04-14 06:59] LABS: Anion Gap 10 mmol/L; Blood Urea Nitrogen 14 mg/dL (9-20); Calcium 9.2 mg/dL (8.4-10.2); Carbon Dioxide 24 mmol/L (22-30); Chloride 107 mmol/L (98-107); Cholesterol 162 mg/dL (<200); Glucose 100 mg/dL (74-99); HDL Cholesterol 30 mg/dL (40-60); Magnesium 1.7 mg/dL (1.6-2.3); Non-African American GFR(MDRD) >60 (>60 ml/min/1.73 sqM); Potassium 4.3 mmol/L (3.5-5.1); Sodium 141 mmol/L (137-145)
[2017-04-14] MEDS: NICOTINE 21MG/24HR PATCH TRANSDERM SCH (07:43)
[2017-04-14] MEDS: HEPARIN SODIUM,PORCINE 5,000 UNIT/ML 1 ML VIAL SQ SCH (07:52)
[2017-04-14] MEDS: PRASUGREL 10 MG TAB PO SCH (07:52)
[2017-04-14] MEDS: ASPIRIN 325 MG TAB PO SCH (07:52)
[2017-04-14] MEDS: ACETAMINOPHEN TAB 500 MG TAB PO PRN (07:52)
[2017-04-14] MEDS: METOPROLOL TARTRATE 12.5 MG TAB PO SCH (07:52)
[2017-04-14] MEDS: LISINOPRIL 2.5 MG TAB PO SCH (07:52)
[2017-04-14 08:17] VITALS: RESP 16; TEMP 98
--- NOTE | 2017-04-14 10:06 | PN ---
This is a very pleasant 56-year-old male who was in the ICU yesterday on the ventilator. He had an acute inferior wall myocardial infarction. The patient apparently went into ventricular fibrillation and ventricular fibrillation arrest. He had the totally occluded circumflex artery stented. He came back to the ICU on the ventilator. Yesterday, he was doing well with excellent weaning parameters and blood gases. He had a positive cuff leak test. His RSBI was relatively low and he was extubated. He was moved out of the unit yesterday. Resides currently on the sixth floor. Doing relatively well, feeling well. Hopes to go home in a day or so. No chest pain or chest discomfort. No cough. No shortness of breath. No fever , no chills. Currently, temperature 96.6, heart rate 64, respiratory rate 16, blood pressure 137/84, mean 101. Room air saturation 94%. Appears in no acute distress. HEENT examination is grossly unremarkable. Mixed membranes are moist. No oral lesions. Neck supple, full range of motion. No adenopathy or thyromegaly. Neck veins are flat. Cardiovascular examination reveals regular rhythm and rate. Heart sounds were distant. S1, S2 normal. Lungs reveals mostly clear breath sounds, maybe a few scattered rhonchi. No crackles or wheezed. Abdomen is soft, bowel wounds are heard. No masses or tenderness. Extremities are intact. No cyanosis, clubbing or edema. Skin without rash. Neurologic examination is brief but nonfocal. Labs are reviewed. CBC is completely normal. Platelet count is a low, low at 140, electrolytes are completely normal. Troponins are 154 and 117. Medications are reviewed. X-ray shows evidence of mild heart failure. ASSESSMENT: 1. Acute inferior wall ST-elevation myocardial infarction with subsequent ventricular fibrillation arrest. The patient has a stenting of the totally occluded circumflex coronary artery. 2. Acute hypoxemic respiratory failure requiring intubation and mechanical ventilatory support, extubated yesterday. 3. Chronic and ongoing tobacco dependence. 4. Hyperlipidemia. PLAN: The patient is doing well. Will continue to follow. Prognosis is guarded. He may get discharged tomorrow. The patient looks well. No major complaints. Will continue to follow. [facility]
[2017-04-14 12:23] VITALS: BP 126/92; PULSE 57
--- NOTE | 2017-04-14 14:08 | P.PN ---
Subjective Principal diagnosis: Inferior STEMI This is a pleasant 56-year-old gentleman with history of hyperlipidemia, nicotine dependence, who presented to the hospital with an acute inferior wall myocardial infarction. He was taken to the cardiac catheterization lab where he was found to have an acute total occlusion of the mid circumflex artery which was opened and stented. In the emergency room patient also developed ventricular fibrillation. Echocardiogram with Doppler study revealed an ejection fraction of 35%. was seen and examined this morning, denied any chest pain or difficulty in breathing. He's been up ambulating without any difficulty. Blood pressure 126/90 with a heart rate in the 50s to 60s. Objective - Vital Signs Vital signs: Vital Signs Temp 98 F 04/14/17 12:00 Pulse 57 L 04/14/17 12:00 Resp 16 04/14/17 12:00 BP 126/92 04/14/17 12:00 Pulse Ox 95 04/14/17 12:00 Intake & Output 04/13/17 04/14/17 04/14/17 18:59 06:59 18:59 Intake Total 230 230 Output Total 600 Balance 230 -370 Weight 105.8 kg Intake: Oral 230 230 Output: Urine 600 Other: Voiding Method Toilet Urinal # Voids 0 2 # Bowel Movements 1 - Exam PHYSICAL EXAMINATION: HEENT: Head is atraumatic, normocephalic. Pupils equal, round. Neck is supple. There is no elevated jugular venous pressure. HEART EXAMINATION: Heart S1, S2 normal. No murmur or gallop heard. CHEST EXAMINATION: Lungs are clear to auscultation and precussion. No chest wall tenderness is noted on palpation or with deep breathing. ABDOMEN: Soft, nontender. Bowel sounds are heard. No organomegaly noted. EXTREMITIES: 2+ peripheral pulses with no evidence of peripheral edema and no calf tenderness noted. NEUROLOGIC patient is awake, alert and oriented -3. . - Labs CBC & Chem 7: 04/14/17 06:29 04/14/17 06:29 Labs: Abnormal Lab Results - Last 24 Hours (Table) 04/14/17 Range/Units 06:29 Glucose 100 H (74-99) mg/dL LDL Cholesterol, Calc 105 H (0-99) mg/dL HDL Cholesterol 30 L (40-60) mg/dL Assessment and Plan (1) ST elevation myocardial infarction (STEMI) of inferior wall Status: Acute (2) Presence of stent in left circumflex coronary artery Status: Acute (3) Nicotine dependence Status: Acute (4) Hyperlipemia Status: Acute Plan: Patient may be able to be discharged home today. We will discharge him on aspirin 325 mg daily, Lipitor 80 mg daily, lisinopril to half milligrams daily, metoprolol tartrate 12-1/2 mg one tablet by mouth twice a day, nicotine patch, Effient 10 mg daily, Protonix 40 mg daily, patient will take Effient for one month, after that he will be given a one-time dose of 600 mg of Plavix, then take Plavix 75 mg daily. He will also have sublingual nitroglycerin as needed for chest pain. Patient has been educated regarding his medication and prescriptions have been provided. He will follow-up with Dr. Nugent in the office in one week. DNP note has been reviewed, I agree with a documented findings and plan of care. Patient was seen and examined.
--- NOTE | 2017-04-14 16:13 | P.PN ---
Subjective This is a pleasant 56-year-old gentleman with history of hyperlipidemia, nicotine dependence, who presented to the hospital with an acute inferior wall myocardial infarction. He was taken to the cardiac catheterization lab where he was found to have an acute total occlusion of the mid circumflex artery which was opened and stented. In the emergency room patient also developed ventricular fibrillation. Echocardiogram with Doppler study revealed an ejection fraction of 35%. This morning, the patient is calm and comfortable. He has no major respiratory distress. Denies having any chest pain. No cough or sputum production. Hemodynamically stable. No swelling in lower extremities. No fever or chills. Adequate appetite. No nausea. No vomiting. Smoking cessation counseling was done and the patient seems to be committed for smoking cessation. He claims not to have any form of respiratory medications or inhalers on outpatient basis. He'll be discharged home on a combination of aspirin and Effient. Objective - Vital Signs Vital signs: Vital Signs Temp 98 F 04/14/17 12:00 Pulse 57 L 04/14/17 12:00 Resp 16 04/14/17 12:00 BP 126/92 04/14/17 12:00 Pulse Ox 95 04/14/17 12:00 Intake & Output 04/13/17 04/14/17 04/14/17 18:59 06:59 18:59 Intake Total 230 230 Output Total 600 Balance 230 -370 Weight 105.8 kg Intake: Oral 230 230 Output: Urine 600 Other: Voiding Method Toilet Urinal # Voids 0 2 # Bowel Movements 1 - Exam The patient appeared well nourished and normally developed. Vital signs as documented. Head exam is unremarkable. No scleral icterus or corneal arcus noted. Neck is without jugular venous distension, thyromegaly, or carotid bruits. Carotid upstrokes are brisk bilaterally. Lungs are clear to auscultation and percussion. Cardiac exam reveals the PMI to be normally sized and situated. Rhythm is regular. First and second heart sounds normal. No murmurs, rubs or gallops. Abdominal exam reveals normal bowel sounds, no masses , no organomegaly and no aortic enlargement. Extremities are nonedematous and both femoral and pedal pulses are normal. - Labs CBC & Chem 7: 04/14/17 06:29 04/14/17 06:29 Labs: Abnormal Lab Results - Last 24 Hours (Table) 04/14/17 Range/Units 06:29 Glucose 100 H (74-99) mg/dL LDL Cholesterol, Calc 105 H (0-99) mg/dL HDL Cholesterol 30 L (40-60) mg/dL Assessment and Plan Plan: Assessment 1 acute inferior wall myocardial infarction of a ST segment elevation type. Status post cardiac catheterization and stenting 2 hyperlipidemia 3 CHF with impaired ejection fraction of 35% 4 smoker Plan Pulmonate status is stable. Smoking cessation counseling was done. The patient seems to be the discharging home on a combination of aspirin and Effient. He'll be also placed on metoprolol and there is no palpable. Nitroglycerin sublingual necessary basis. Follow-up with cardiology. Follow- up with pulmonary if he develops any future shortness of breath. Chest x-ray showed no evidence of abnormalities other than some subtle changes related to CHF.
--- NOTE | 2017-04-16 18:40 | P.DS ---
Providers Date of admission: 04/11/17 20:08 Expected date of discharge: 04/14/17 Attending physician: Arian Jackson Consults: 04/11/17 21:18 Consult Physician Routine Consulting Provider: [facility] Consult Reason/Comments: Post Interventional patient Do you want consulting provider notified?: Already Contacted 04/11/17 21:23 Consult Physician Stat Consulting Provider: Scooter Hines Consult Reason/Comments: Hospital admission Do you want consulting provider notified?: Yes 04/11/17 23:37 Consult Physician Stat Consulting Provider: Benton Noguera Consult Reason/Comments: ICU management Do you want consulting provider notified?: Already Contacted Primary care physician: [facility] Course: Final diagnosis -Acute inferior wall myocardial infarction, ST elevation type myocardial infarction. - cardiac catheterization emergent with stent to the circumflex. -Ischemic cardiomyopathy ejection fraction 30-35% -Chronic nicotine dependence, patient is a smoker. -Obesity, body mass index greater than 30. -Hyperlipidemia. -Essential hypertension. -Chronic obstructive pulmonary disease in a smoker. -Thrombocytopenia unspecified Hospital course: Patient presented with acute ST elevation LA with intervention to the circumflex. By the time of discharge up and about. No chest pain or shortness of breath. LDL was 105. 2-D echo showed EF of 30-35%. Patient advised against smoking Consultation: To Dr. Durán from pulmonary Dr. Jackson from interventional cardiology Plan - Discharge Summary New Discharge Prescriptions: New Nicotine 21Mg/24Hr Patch [Habitrol] 1 patch TRANSDERM DAILY patch Aspirin 325 mg PO DAILY #30 tab Atorvastatin [Lipitor] 80 mg PO HS #30 tab Lisinopril [Zestril] 2.5 mg PO DAILY #30 tab Metoprolol Tartrate [Lopressor] 12.5 mg PO BID #60 tab Nitroglycerin Sl Tabs [Nitrostat] 0.4 mg SUBLINGUAL Q5M PRN #25 tab PRN Reason: Chest Pain Pantoprazole [Protonix] 40 mg PO AC-BRKFST #30 tab Prasugrel [Effient] 10 mg PO DAILY #30 tab Continue HYDROcodone/APAP 10-325MG [[place] 10-325] 1 tab PO Q6H PRN PRN Reason: Pain Discontinued Atorvastatin Calcium [Lipitor] 10 mg PO DAILY Discharge Medication List HYDROcodone/APAP 10-325MG [[place] 10-325] 1 tab PO Q6H PRN 08/09/15 [History] Aspirin 325 mg PO DAILY #30 tab 04/14/17 [Rx] Atorvastatin [Lipitor] 80 mg PO HS #30 tab 04/14/17 [Rx] Lisinopril [Zestril] 2.5 mg PO DAILY #30 tab 04/14/17 [Rx] Metoprolol Tartrate [Lopressor] 12.5 mg PO BID #60 tab 04/14/17 [Rx] Nicotine 21Mg/24Hr Patch [Habitrol] 1 patch TRANSDERM DAILY patch 04/14/17 [Rx] Nitroglycerin Sl Tabs [Nitrostat] 0.4 mg SUBLINGUAL Q5M PRN #25 tab 04/14/17 [Rx ] Pantoprazole [Protonix] 40 mg PO AC-BRKFST #30 tab 04/14/17 [Rx] Prasugrel [Effient] 10 mg PO DAILY #30 tab 04/14/17 [Rx] Follow up Appointment(s)/Referral(s): Melvin Schroeder DO [Primary Care Provider] - 1 Week (office will call with appointment) Arian Jackson MD [STAFF PHYSICIAN] - 04/21/17 4:15 pm Ambulatory/Diagnostic Orders: Basic Metabolic Panel [LAB.AMB] Location: Determined By Patient Complete Blood Count w/diff [LAB.AMB] Location: Determined By Patient Patient Instructions/Handouts: Myocardial Infarction (DC) Activity/Diet/Wound Care/Special Instructions: Heart Healthy diet Discharge Disposition: HOME SELF-CARE
== END 2017-04-14 14:23 | disposition home or self-care (01) | DRG 246 ==
LOC: EC 19:22 → 6ICU 20:08 → 6SEL 04-12 16:05
PROVIDERS: ADMIT Internal Medicine Interventional Cardiology; ATTEND Internal Medicine Interventional Cardiology
PROC: 027034Z Dilation of Coronary Artery, One Artery with Drug-eluting Intraluminal Device, Percutaneous Approach (ICD-10-PCS; 2017-04-11)
PROC: 0BH17EZ Insertion of Endotracheal Airway into Trachea, Via Natural or Artificial Opening (ICD-10-PCS; 2017-04-11)
PROC: 5A1935Z Respiratory Ventilation, Less than 24 Consecutive Hours (ICD-10-PCS; 2017-04-11)
PROC: 0D9670Z Drainage of Stomach with Drainage Device, Via Natural or Artificial Opening (ICD-10-PCS; 2017-04-11)
PROC: 4A023N7 Measurement of Cardiac Sampling and Pressure, Left Heart, Percutaneous Approach (ICD-10-PCS; principal; 2017-04-11 20:03)
PROC: B211YZZ Fluoroscopy of Multiple Coronary Arteries using Other Contrast (ICD-10-PCS; 2017-04-11 20:03)
DX: I21.19 ST elevation (STEMI) myocardial infarction involving other coronary artery of inferior wall (principal); I49.01 Ventricular fibrillation; J96.01 Acute respiratory failure with hypoxia; I46.9 Cardiac arrest, cause unspecified; I47.2 Ventricular tachycardia; I11.0 Hypertensive heart disease with heart failure; I50.9 Heart failure, unspecified; D69.6 Thrombocytopenia, unspecified; J44.9 Chronic obstructive pulmonary disease, unspecified; E78.5 Hyperlipidemia, unspecified; E66.9 Obesity, unspecified; E78.00 Pure hypercholesterolemia, unspecified; F17.200 Nicotine dependence, unspecified, uncomplicated; I25.5 Ischemic cardiomyopathy; Z68.34 Body mass index [BMI] 34.0-34.9, adult; K21.9 Gastro-esophageal reflux disease without esophagitis; K43.9 Ventral hernia without obstruction or gangrene; I25.10 Atherosclerotic heart disease of native coronary artery without angina pectoris; Z79.899 Other long term (current) drug therapy; Z88.0 Allergy status to penicillin; Z91.040 Latex allergy status; Z82.49 Family history of ischemic heart disease and other diseases of the circulatory system
CPT/HCPCS: 31500; 36415; 36600; 71010; 80048; 80053; 80061; 81001; 82553; 82805; 83735; 84100; 84484; 85025; 85027; 85610; 85730; 87086; 92950; 93005; 93306; 93458; 94002; 94003; 94640; 99291

== ENCOUNTER → 2017-06-16 | Outpatient (CLI) | payer MEDICARE ==
[2017-06-16 17:34] LABS: CH 34.6; CHCM 35.5; HDW 2.79; HGB 15.6 gm/dL (13.0-17.5); MCH 33.3 pg (25.0-35.0); MCV 98.1 fL (80.0-100.0); RBC 4.69 m/uL (4.30-5.90); RDW 14.4 % (11.5-15.5); WBC 6.4 k/uL (3.8-10.6)
[2017-06-16 17:35] LABS: Appearance,Urine Clear (Clear); Bilirubin,Urine Negative (Negative); Glucose,Urine (UA) Negative (Negative); Ketones,Urine Negative (Negative); Leukocyte Esterase,Urine Negative (Negative); Nitrite,Urine Negative (Negative); PH, Urine 5.5 (5.0-8.0); Protein,Urine Trace (Negative); Specific Gravity,Urine 1.025 (1.001-1.035); UA Billing (MACRO vs. MICRO) CHEM; Urobilinogen,Urine <2.0 mg/dL (<2.0)
[2017-06-16 17:46] LABS: ALT 51 U/L (21-72); AST 32 U/L (17-59); Alkaline Phosphatase 121 U/L (38-126); Anion Gap 10 mmol/L; Blood Urea Nitrogen 22 mg/dL (9-20); Carbon Dioxide 25 mmol/L (22-30); Chloride 104 mmol/L (98-107); Cholesterol 82 mg/dL (<200); Glucose 77 mg/dL (74-99); HDL Cholesterol 30 mg/dL (40-60); Non-African American GFR(MDRD) >60 (>60 ml/min/1.73 sqM); Potassium 4.4 mmol/L (3.5-5.1); Sodium 139 mmol/L (137-145); Total Protein 6.8 g/dL (6.3-8.2)
[2017-06-16 18:15] LABS: Prostate Specific Antigen 0.66 ng/mL (0.00-4.00)
[2017-06-16 22:51] LABS: Hemoglobin A1C 5.5 % (4.2-6.1)
== END | disposition home or self-care (01) ==
LOC: LABWHC1 17:02
PROVIDERS: ATTEND Family Medicine
DX: Z00.01 Encounter for general adult medical examination with abnormal findings (principal); E66.9 Obesity, unspecified; I25.10 Atherosclerotic heart disease of native coronary artery without angina pectoris; N40.1 Benign prostatic hyperplasia with lower urinary tract symptoms
CPT/HCPCS: 36415; 80053; 80061; 81003; 83036; 84153; 85027; 86803

== ENCOUNTER → 2017-10-08 | Outpatient (CLI) | payer MEDICARE ==
[2017-10-08 11:04] LABS: HCT 50.4 % (39.0-53.0); HGB 17.2 gm/dL (13.0-17.5); MCH 33.5 pg (25.0-35.0); MCHC 34.1 g/dL (31.0-37.0); MCV 98.2 fL (80.0-100.0); Mean Platelet Volume 6.8; Platelet Count 168 k/uL (150-450); RBC 5.13 m/uL (4.30-5.90); WBC 6.4 k/uL (3.8-10.6)
[2017-10-08 11:20] LABS: ALT 39 U/L (21-72); AST 24 U/L (17-59); Anion Gap 7 mmol/L; Blood Urea Nitrogen 18 mg/dL (9-20); Calcium 9.8 mg/dL (8.4-10.2); Carbon Dioxide 31 mmol/L (22-30); Chloride 103 mmol/L (98-107); Cholesterol 103 mg/dL (<200); Glucose 100 mg/dL (74-99); HDL Cholesterol 39 mg/dL (40-60); LDL Cholesterol,Calculated 52 mg/dL (0-99); Potassium 4.8 mmol/L (3.5-5.1); Sodium 141 mmol/L (137-145); Triglycerides 59 mg/dL (<150)
== END | disposition home or self-care (01) ==
LOC: LABWHC1 10:40
PROVIDERS: ATTEND Family Medicine
DX: E78.00 Pure hypercholesterolemia, unspecified (principal); I10 Essential (primary) hypertension
CPT/HCPCS: 36415; 80048; 80061; 84450; 84460; 85027

== ENCOUNTER → 2018-03-02 | Outpatient (CLI) | payer MEDICARE ==
[2018-03-02 17:00] LABS: HCT 48.7 % (39.0-53.0); MCH 33.7 pg (25.0-35.0); MCHC 34.9 g/dL (31.0-37.0); MCV 96.6 fL (80.0-100.0); Mean Platelet Volume 7.2; Platelet Count 177 k/uL (150-450); RBC 5.04 m/uL (4.30-5.90); RDW 13.3 % (11.5-15.5); WBC 5.6 k/uL (3.8-10.6)
[2018-03-02 17:10] LABS: ALT 47 U/L (21-72); AST 32 U/L (17-59); Anion Gap 8 mmol/L; Blood Urea Nitrogen 18 mg/dL (9-20); Calcium 9.5 mg/dL (8.4-10.2); Carbon Dioxide 28 mmol/L (22-30); Chloride 105 mmol/L (98-107); Cholesterol 93 mg/dL (<200); Glucose 99 mg/dL (74-99); HDL Cholesterol 32 mg/dL (40-60); LDL Cholesterol,Calculated 50 mg/dL (0-99); Potassium 4.8 mmol/L (3.5-5.1); Sodium 141 mmol/L (137-145); Triglycerides 55 mg/dL (<150)
== END | disposition home or self-care (01) ==
LOC: LABWHC1 16:15
PROVIDERS: ATTEND Family Medicine
DX: E78.00 Pure hypercholesterolemia, unspecified (principal); I10 Essential (primary) hypertension
CPT/HCPCS: 36415; 80048; 80061; 84450; 84460; 85027

== ENCOUNTER → 2018-08-03 | Outpatient (CLI) | payer MEDICARE ==
[2018-08-03 15:13] LABS: HCT 48.8 % (39.0-53.0); MCH 33.9 pg (25.0-35.0); MCHC 34.9 g/dL (31.0-37.0); MCV 97.2 fL (80.0-100.0); Mean Platelet Volume 7.6; Platelet Count 142 k/uL (150-450); RBC 5.01 m/uL (4.30-5.90); RDW 12.9 % (11.5-15.5); WBC 4.7 k/uL (3.8-10.6)
[2018-08-03 15:23] LABS: Appearance,Urine Clear (Clear); Bilirubin,Urine Negative (Negative); Blood,Urine Negative (Negative); Color,Urine Yellow; Glucose,Urine (UA) Negative (Negative); Ketones,Urine Negative (Negative); Leukocyte Esterase,Urine Negative (Negative); Nitrite,Urine Negative (Negative); PH, Urine 5.5 (5.0-8.0); Protein,Urine Trace (Negative); Urobilinogen,Urine <2.0 mg/dL (<2.0)
[2018-08-03 21:50] LABS: Hemoglobin A1C 5.4 % (4.0-6.0)
[2018-08-04 04:04] LABS: Albumin 4.5 g/dL (3.80-4.90); Albumin/Globulin Ratio 2.65 (1.20-2.10); Anion Gap 7.6 mmol/L (4.00-12.00); Calcium 9.4 mg/dL (8.7-10.3); Carbon Dioxide 24.4 mmol/L (21.6-31.8); Globulin 1.7 g/dL (2.1-3.7); LDL Cholesterol,Calculated 66.8 mg/dL (0.0-131.0); Potassium 4.2 mmol/L (3.5-5.5); Total Bilirubin 1.2 mg/dL (0.2-1.2); Total Protein 6.2 g/dL (6.2-8.2); VLDL Calculation 17.2 mg/dL (5.00-40.00)
== END | disposition home or self-care (01) ==
LOC: LABWHC1 14:11
PROVIDERS: ATTEND Family Medicine
DX: Z00.01 Encounter for general adult medical examination with abnormal findings (principal); E66.9 Obesity, unspecified
CPT/HCPCS: 36415; 80053; 80061; 81003; 83036; 84153; 85027

== ENCOUNTER → 2019-01-13 | Outpatient (CLI) | payer MEDICARE ==
[2019-01-13 16:55] LABS: HCT 43.1 % (39.0-53.0); HGB 14.7 gm/dL (13.0-17.5); MCH 33.4 pg (25.0-35.0); MCHC 34.2 g/dL (31.0-37.0); MCV 97.6 fL (80.0-100.0); Mean Platelet Volume 7.8; Platelet Count 169 k/uL (150-450); RBC 4.42 m/uL (4.30-5.90); RDW 13.7 % (11.5-15.5); WBC 4.8 k/uL (3.8-10.6)
[2019-01-14 02:03] LABS: Anion Gap 7.5 mmol/L (4.00-12.00); Calcium 9.1 mg/dL (8.7-10.3); Carbon Dioxide 22.5 mmol/L (21.6-31.8); Potassium 4.4 mmol/L (3.5-5.5)
== END | disposition home or self-care (01) ==
LOC: LABWHC1 15:48
PROVIDERS: ATTEND Family Medicine
DX: E78.5 Hyperlipidemia, unspecified (principal); I25.5 Ischemic cardiomyopathy; I10 Essential (primary) hypertension
CPT/HCPCS: 36415; 80048; 84450; 84460; 85027

== ENCOUNTER → 2019-06-03 | Outpatient (CLI) | payer MEDICARE ==
[2019-06-03 20:59] LABS: Chol/HDL Ratio 3.25; LDL Cholesterol,Calculated 54.6 mg/dL (0.0-131.0); VLDL Calculation 17.4 mg/dL (5.00-40.00)
== END | disposition home or self-care (01) ==
LOC: LABWHC1 12:57
PROVIDERS: ATTEND Internal Medicine Interventional Cardiology
DX: E78.2 Mixed hyperlipidemia (principal)
CPT/HCPCS: 36415; 80061; 84450; 84460

== ENCOUNTER → 2019-09-09 | Outpatient (CLI) | payer MEDICARE ==
[2019-09-09 17:56] LABS: HCT 47.8 % (39.0-53.0); HGB 16.9 gm/dL (13.0-17.5); MCH 34.8 pg (25.0-35.0); MCHC 35.2 g/dL (31.0-37.0); MCV 98.8 fL (80.0-100.0); Platelet Count 170 k/uL (150-450); RBC 4.84 m/uL (4.30-5.90); RDW 12.6 % (11.5-15.5)
[2019-09-09 23:31] LABS: African American GFR (CKD) 95.7 (60.0-200.0); Albumin 4.6 g/dL (3.80-4.90); Albumin/Globulin Ratio 2.71 (1.60-3.17); Anion Gap 6.5 mmol/L (4.00-12.00); Calcium 9.5 mg/dL (8.7-10.3); Carbon Dioxide 25.5 mmol/L (21.6-31.8); Chol/HDL Ratio 3.17; Globulin 1.7 g/dL (1.6-3.3); LDL Cholesterol,Calculated 51.2 mg/dL (0.0-131.0); Non-African American GFR(CKD) 82.6 (60.0-200.0); Potassium 4.2 mmol/L (3.5-5.5); Total Bilirubin 0.9 mg/dL (0.2-1.2); Total Protein 6.3 g/dL (6.2-8.2); VLDL Calculation 24.8 mg/dL (5.00-40.00)
[2019-09-09 23:39] LABS: T4, Free (Free Thyroxine) 1.2 ng/dL (0.80-1.80)
[2019-09-10 01:06] LABS: Hemoglobin A1C 5.5 % (4.0-6.0)
== END | disposition home or self-care (01) ==
LOC: LABWHC1 17:00
PROVIDERS: ATTEND Family Medicine
DX: Z00.01 Encounter for general adult medical examination with abnormal findings (principal); E66.9 Obesity, unspecified
CPT/HCPCS: 36415; 80053; 80061; 83036; 84153; 84439; 84443; 85027

== ENCOUNTER 2021-05-08 02:59 | Emergency (ER) | payer MEDICARE ==
[2021-05-08 03:09] VITALS: BP 116/68; PULSE 78; RESP 18; TEMP 97.7
--- NOTE | 2021-05-08 03:38 | ED ---
Alcohol HPI - General Chief Complaint: Alcohol Stated Complaint: ETOH Time Seen by Provider: 05/08/21 03:16 Source: patient, EMS Mode of arrival: EMS Limitations: no limitations - History of Present Illness MD Complaint: alcohol intoxication -: minute(s) Recent Trauma: No Associated Symptoms: denies other symptoms Treatments Prior to Arrival: none - Related Data Home Medications Medication Instructions Recorded Confirmed HYDROcodone/APAP 10-325MG [[place] 1 tab PO Q6H PRN 08/09/15 04/11/17 10-325] Previous Rx's Medication Instructions Recorded Aspirin 325 mg PO DAILY #30 tab 04/14/17 Atorvastatin [Lipitor] 80 mg PO HS #30 tab 04/14/17 Metoprolol Tartrate [Lopressor] 12.5 mg PO BID #60 tab 04/14/17 Nicotine 21Mg/24Hr Patch [Habitrol] 1 patch TRANSDERM DAILY patch 04/14/17 Nitroglycerin Sl Tabs [Nitrostat] 0.4 mg SUBLINGUAL Q5M PRN #25 tab 04/14/17 Pantoprazole [Protonix] 40 mg PO AC-BRKFST #30 tab 04/14/17 Prasugrel [Effient] 10 mg PO DAILY #30 tab 04/14/17 lisinopriL [Zestril] 2.5 mg PO DAILY #30 tab 04/14/17 Allergies Allergy/AdvReac Type Severity Reaction Status Date / Time latex Allergy Rash/Hives Verified 04/11/17 19:59 Penicillins Allergy Unknown Verified 04/11/17 19:59 Review of Systems ROS Statement: Those systems with pertinent positive or pertinent negative responses have been documented in the HPI. ROS Other: All systems not noted in ROS Statement are negative. Constitutional: Denies: fever Respiratory: Denies: cough, dyspnea Cardiovascular: Denies: chest pain, palpitations, syncope Gastrointestinal: Denies: abdominal pain, vomiting, diarrhea Musculoskeletal: Denies: back pain Skin: Denies: rash Neurological: Denies: headache, weakness Psychiatric: Denies: depression, homicidal thoughts, suicidal thoughts Past Medical History Past Medical History: GERD/Reflux, Hypertension Additional Past Medical History / Comment(s): UMBILICAL HERNIA, SKIN TO FINGERS PEELS, current belles palsy History of Any Multi-Drug Resistant Organisms: None Reported Past Surgical History: Appendectomy, Hernia Repair Additional Past Surgical History / Comment(s): LT LOWER ABD HERNIA REPAIR Past Anesthesia/Blood Transfusion Reactions: Motion Sickness Additional Past Anesthesia/Blood Transfusion Reaction / Comment(s): STATES "MOTHER HAS PONV" Past Psychological History: No Psychological Hx Reported Smoking Status: Never smoker Past Alcohol Use History: None Reported, Rare Past Drug Use History: Marijuana - Past Family History Father Family Medical History: Congestive Heart Failure (CHF) Mother Family Medical History: Cancer Additional Family Medical History / Comment(s): SKIN General Exam Limitations: no limitations General appearance: alert, in no apparent distress Head exam: Present: atraumatic, normocephalic Eye exam: Present: normal appearance. Absent: scleral icterus, conjunctival injection ENT exam: Present: normal oropharynx Respiratory exam: Present: normal lung sounds bilaterally. Absent: respiratory distress, wheezes, rales, rhonchi, stridor Cardiovascular Exam: Present: regular rate, normal rhythm, normal heart sounds. Absent: systolic murmur, diastolic murmur, rubs, gallop GI/Abdominal exam: Present: soft. Absent: distended, tenderness, guarding, rebound, rigid Extremities exam: Present: normal inspection, normal capillary refill Back exam: Present: normal inspection. Absent: vertebral tenderness Neurological exam: Present: alert, oriented X3. Absent: motor sensory deficit Skin exam: Present: warm, dry, intact, normal color. Absent: rash Course Vital Signs 05/08/21 03:00 Temperature 97.7 F Pulse Rate 78 Respiratory 18 Rate Blood Pressure 116/68 O2 Sat by Pulse 94 L Oximetry Disposition Clinical Impression: Alcoholic intoxication Disposition: HOME SELF-CARE Condition: Good Instructions (If sedation given, give patient instructions): Alcohol Intoxication (ED) Is patient prescribed a controlled substance at d/c from ED?: No Referrals: None,Stated [Primary Care Provider] - 1-2 days
== END 2021-05-08 03:35 | disposition home or self-care (01) ==
LOC: EC 02:59
DX: F10.129 Alcohol abuse with intoxication, unspecified (principal); I10 Essential (primary) hypertension; F12.90 Cannabis use, unspecified, uncomplicated; K21.9 Gastro-esophageal reflux disease without esophagitis; Z79.82 Long term (current) use of aspirin; Z91.040 Latex allergy status; Z88.0 Allergy status to penicillin; Z90.49 Acquired absence of other specified parts of digestive tract; Y90.9 Presence of alcohol in blood, level not specified
CPT/HCPCS: 82075; 99284

== ENCOUNTER → 2021-10-09 | Outpatient (CLI) | payer MEDICARE ==
[2021-10-09 15:10] LABS: ALT 42 U/L (10-49); AST 24 U/L (14-35); Chol/HDL Ratio 2.73 Ratio; LDL Cholesterol,Calculated 45.6 mg/dL (0.0-131.0)
== END | disposition home or self-care (01) ==
LOC: LABWHC1 07:45
PROVIDERS: ATTEND Internal Medicine Interventional Cardiology
DX: E78.2 Mixed hyperlipidemia (principal)
CPT/HCPCS: 36415; 80061; 84450; 84460

== ENCOUNTER → 2022-04-04 | Outpatient (CLI) | payer MEDICARE ==
[2022-04-04 22:31] LABS: Appearance,Urine Clear (Clear); Bilirubin,Urine Negative (Negative); Blood,Urine Negative (Negative); Color,Urine Dark Yellow (Yellow); Ketones,Urine Negative (Negative); Nitrite,Urine Negative (Negative); Specific Gravity,Urine 1.025 (1.001-1.030); Urobilinogen,Urine 0.2 (0.2,1.0)
[2022-04-04 22:47] LABS: Basophils # (A) 0.03 X 10*3/uL (0.00-0.10); Basophils % (A) 0.4 %; Eosinophils # (A) 0.26 X 10*3/uL (0.04-0.35); Eosinophils % (A) 3.9 %; HCT 47.6 % (39.6-50.0); HGB 15.9 g/dL (13.0-17.0); Immature Grans, Automated 0.3 %; Lymphocytes # (A) 2.27 X 10*3/uL (0.90-5.00); MCH 32.5 pg (27.0-32.0); MCHC 33.4 g/dL (32.0-37.0); MCV 97.3 fL (80.0-97.0); Mean Platelet Volume 10.7 fL (9.5-12.2); Monocytes # (A) 0.54 X 10*3/uL (0.20-1.00); Monocytes % (A) 8.1 %; NRBC Per 100 WBC 0 /100 WBCS (0.0-0.0); Neutrophils # (A) 3.55 X 10*3/uL (1.80-7.70); Neutrophils % (A) 53.3 %; Platelet Count 184 X 10*3/uL (140-440); RBC 4.89 X 10*6/uL (4.40-5.60); RDW 12.3 % (11.5-14.5); WBC 6.67 X 10*3/uL (4.50-10.00)
[2022-04-05 01:14] LABS: Estimated Average Glucose UNC
[2022-04-05 02:22] LABS: % Iron Saturation 26.13 (15.00-50.00); ALT 41 U/L (10-49); AST 29 U/L (14-35); African American GFR (CKD) 92.2 (60.0-200.0); Albumin 4.4 g/dL (3.8-4.9); Albumin/Globulin Ratio 2.22 (1.60-3.17); Alkaline Phosphatase 77 U/L (41-126); BUN/Creat Ratio 21.67 Ratio (12.00-20.00); Blood Urea Nitrogen 22.1 mg/dL (9.0-27.0); Calcium 9.4 mg/dL (8.7-10.3); Carbon Dioxide 18.7 mmol/L (20.0-27.5); Chloride 104 mmol/L (96-109); Chol/HDL Ratio 2.85 Ratio; Ferritin 83.6 ng/mL (22.0-322.0); Glucose 105 mg/dL (70-110); Iron 90 ug/dL (65-175); LDL Cholesterol,Calculated 44.6 mg/dL (0.0-131.0); Non-African American GFR(CKD) 79.5 (60.0-200.0); Potassium 4.3 mmol/L (3.5-5.5); Sodium 140 mmol/L (135-145); Total Iron Binding Capacity 344 ug/dL (228-460); Total Protein 6.3 g/dL (6.2-8.2)
== END | disposition home or self-care (01) ==
LOC: LABWHC1 16:19
PROVIDERS: ATTEND Family Medicine
DX: I25.10 Atherosclerotic heart disease of native coronary artery without angina pectoris (principal); K62.5 Hemorrhage of anus and rectum; E66.9 Obesity, unspecified; N40.1 Benign prostatic hyperplasia with lower urinary tract symptoms; R49.0 Dysphonia
CPT/HCPCS: 36415; 80053; 80061; 81003; 82306; 82728; 83036; 83540; 83550; 84153; 84439; 84443; 85025

== ENCOUNTER 2022-12-20 23:01 | Emergency (ER) | payer MEDICARE ==
[2022-12-20 23:09] LABS: Glucose,Whole Blood 102 mg/dL (70-110)
[2022-12-20 23:14] VITALS: PULSE 63; RESP 18; TEMP 98.1
[2022-12-20 23:25] VITALS: BP 90/56
[2022-12-20 23:49] LABS: Basophils % (A) 0 %; Eosinophils # (A) 0.2 k/uL (0-0.7); Eosinophils % (A) 2 %; HCT 40.9 % (39.0-53.0); HGB 14.3 gm/dL (13.0-17.5); Lymphocytes # (A) 3.2 k/uL (1.0-4.8); Lymphocytes % (A) 39 %; MCH 33.3 pg (25.0-35.0); MCV 95.2 fL (80.0-100.0); Mean Platelet Volume 8.2; Monocytes # (A) 0.5 k/uL (0-1.0); Monocytes % (A) 7 %; Neutrophils # (A) 3.9 k/uL (1.3-7.7); Neutrophils % (A) 48 %; Platelet Count 180 k/uL (150-450); RBC 4.29 m/uL (4.30-5.90); RDW 12.8 % (11.5-15.5); WBC 8.1 k/uL (3.8-10.6)
--- NOTE | 2022-12-20 23:53 | CT ---
EXAMINATION TYPE: CT brain wo con CT DLP: 1100 mGycm, Automated exposure control for dose reduction was used. DATE OF EXAM: 12/20/2022 11:36 PM COMPARISON: 06/04/2014. CLINICAL INDICATION:Male, 62 years old with history of AMS, ETOH TECHNIQUE: Brain: Axial CT images of the brain were obtained with coronal and sagittal reformats created and rev iewed. Contrast used: None. Oral contrast used: None. FINDINGS: Brain: Extra-axial spaces: No abnormal extra-axial fluid collections. Ventricular system: Within normal limits Cerebral parenchyma: No acute intraparenchymal hemorrhage or mass effect. The kearns-white junction is well differentiated. Cerebellum: Unremarkable. Mass effect: No evidence of midline shift. Intracranial vasculature: Atherosclerotic calcifications of the intracranial vessels. Soft tissues: Normal. Calvarium/osseous structures: No depressed skull fracture. Paranasal sinuses and mastoid air cells: Mild scattered paranasal sinus disease. Visualized orbits: Orbital contents are intact. IMPRESSION: No acute intracranial process.
--- NOTE | 2022-12-20 23:55 | ED ---
General Adult HPI - General Chief complaint: Altered Mental Status Stated complaint: ETOH Time Seen by Provider: 12/20/22 23:09 Source: EMS Mode of arrival: EMS Limitations: altered mental status - History of Present Illness Initial comments: this is a 62-year-old male who presented to the emergency department via EMS for EtOH intoxication. [place] was known to have increasing monitoring's and did have a pint of Gt [place] that was empty on his person. The patient on arrival was awake and looking around but refused to answer any questions. The patient was not any acute distress. No further history could be obtained at this time by the patient. - Related Data Home Medications Medication Instructions Recorded Confirmed Ascorbic Acid [Vitamin C] 1,000 mg PO DAILY 10/14/22 10/14/22 Aspirin [Adult Low Dose Aspirin EC] 81 mg PO DAILY 10/14/22 10/14/22 Atorvastatin [Lipitor] 80 mg PO 1500 10/14/22 10/14/22 Homeopathic Tinnitus Med 1 tab PO DAILY 10/14/22 10/14/22 Losartan Potassium [Cozaar] 25 mg PO 0300 10/14/22 10/14/22 Magnesium 400 mg PO DAILY 10/14/22 10/14/22 Metoprolol Tartrate [Lopressor] 12.5 mg PO BID@0330,1500 10/14/22 10/14/22 Pantoprazole [Protonix] 40 mg PO 0300 10/14/22 10/14/22 Sildenafil (Unknown Dose) 1 tab PO DIRECTED PRN 10/14/22 10/14/22 Spironolactone 25 mg PO 0300 10/14/22 10/14/22 Vitamin B Complex 1 each PO DAILY 10/14/22 10/14/22 Allergies Allergy/AdvReac Type Severity Reaction Status Date / Time latex Allergy Rash/Hives Verified 10/16/22 11:23 Penicillins Allergy Unknown Verified 10/16/22 11:23 Review of Systems ROS Statement: Those systems with pertinent positive or pertinent negative responses have been documented in the HPI. 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 Arthritis in feet, some trouble walking. Tinnitus, some hearing difficulty. Last Myocardial Infarction Date:: 2014 History of Any Multi-Drug Resistant Organisms: None Reported Past Surgical History: Appendectomy, Heart Catheterization With Stent, Hernia Repair Additional Past Surgical History / Comment(s): Left inguinal and umbilical hernia repairs, colonoscopy, 1 cardiac stent. Past Anesthesia/Blood Transfusion Reactions: Motion Sickness Additional Past Anesthesia/Blood Transfusion Reaction / Comment(s): STATES "MOTHER HAS PONV" Date of Last Stent Placement:: 2014 Past Psychological History: No Psychological Hx Reported Smoking Status: Former smoker Past Alcohol Use History: Rare Past Drug Use History: Marijuana - Past Family History Father Family Medical History: Congestive Heart Failure (CHF) Mother Family Medical History: Cancer Additional Family Medical History / Comment(s): Skin Cancer. General Exam Limitations: altered mental status (Intoxicated, refusing to answer questions) General appearance: alert, appears intoxicated, obese Head exam: Present: atraumatic, normocephalic, normal inspection Eye exam: Present: normal appearance, PERRL Pupils: Present: normal accommodation ENT exam: Present: normal exam, normal oropharynx, mucous membranes moist Respiratory exam: Present: normal lung sounds bilaterally Cardiovascular Exam: Present: regular rate, normal rhythm, normal heart sounds GI/Abdominal exam: Present: soft, normal bowel sounds Extremities exam: Present: normal inspection, full ROM Back exam: Present: normal inspection, full ROM Neurological exam: Present: alert, oriented X3, CN II-XII intact Psychiatric exam: Present: normal affect, normal mood Skin exam: Present: warm, dry Course Vital Signs 12/20/22 12/20/22 23:06 23:24 Temperature 98.1 F Pulse Rate 63 Respiratory 18 Rate Blood Pressure 89/57 90/56 O2 Sat by Pulse 90 L Oximetry EKG Findings - EKG Comments: EKG Findings:: In EKG was obtained and was interpreted by myself showing a rate of 61, KS interval 161, QRS duration 113 and QTC of 424. This EKG showed a normal sinus rhythm with no ST segment elevation or depression noted. There was some artifact secondary to patient movement. Medical Decision Making - Medical Decision Making Was pt. sent in by a medical professional or institution (, PA, PHOTOGRAPH ENLARGER, urgent care, hospital, or retirement...) When possible be specific @ -No Did you speak to anyone other than the patient for history (EMS, parent, family, police, friend...)? What history was obtained from this source @ -Yes, EMS who stated that the patient was found to be intoxicated without any obvious trauma. Did you review nursing and triage notes (agree or disagree)? Why? @ -I reviewed and agree with nursing and triage notes Were old charts reviewed (outside hosp., previous admission, EMS record, old EKG, old radiological studies, urgent care reports/EKG's, retirement records)? Report findings @ -No old charts were reviewed Differential Diagnosis (chest pain, altered mental status, abdominal pain women, abdominal pain men, vaginal bleeding, weakness, fever, dyspnea, syncope, headache, dizziness, GI bleed, back pain, seizure, CVA, palpatations, mental he alth)? @ -Acute alcohol intoxication, intracranial hemorrhage, electrolyte abnormality EKG interpreted by me (3pts min.). @ -As above X-rays interpreted by me (1pt min.). @ -Chest x-ray was obtained and was interpreted by myself showing low lung volumes with generalized hazy appearance which could represent atelectasis versus pulmonary edema. CT interpreted by me (1pt min.). @ -CT head was obtained and was interpreted by myself showing no acute process. U/S interpreted by me (1pt. min.). @ -None done What testing was considered but not performed or refused? (CT, X-rays, U/S, labs)? Why? @ -None What meds were considered but not given or refused? Why? @ -None Did you discuss the management of the patient with other professionals (professionals i.e. , PA, PHOTOGRAPH ENLARGER, lab, RT, psych nurse, public health social worker, president sales and marketing, teacher, command and control officer, special education case manager)? Give summary @ -No Was smoking cessation discussed for >3mins.? @ -No Was critical care preformed (if so, how long)? @ -No Were there social determinants of health that impacted care today? How? (Homelessness, low income, unemployed, alcoholism, drug addiction, t ransportation, low edu. Level, literacy, decrease access to med. care, senior care, rehab)? @ -No Was there de-escalation of care discussed even if they declined (Discuss DNR or withdrawal of care, Hospice)? DNR status @ -No What co-morbidities impacted this encounter? (DM, HTN, Smoking, COPD, CAD, Cancer, CVA, ARF, Chemo, Hep., AIDS, mental health diagnosis, sleep apnea, morbid obesity)? @ -Chronic alcoholism Was patient admitted / discharged? Hospital course, mention meds given and rout e, prescriptions, significant lab abnormalities, going to OR and other pertinent info. @ -The patient was seen and evaluated in the emergency department. Physical exam, the patient was intoxicated refusing to answer any questions. The patient was not any acute distress. Laboratory workup was obtained as was imaging. All imaging was negative however while the patient was awaiting laboratory workup, the patient's brother arrived in the emergency department and the patient woke up and was answering questions appropriately. The patient was still intoxicated however refused to stay in the hospital and wanted to be discharged. The patient no longer wanted to be treated and was able to answer questions appropriately. The patient's brother was agreeable to taking the pat ient home with him. The patient continued to remain stable and was discharged home intoxicated with his brother. Undiagnosed new problem with uncertain prognosis? @ -No Drug Therapy requiring intensive monitoring for toxicity (Heparin, Nitro, Insulin, Cardizem)? @ -No Were any procedures done? @ -No Diagnosis/symptom? @ -Alcohol intoxication Acute, or Chronic, or Acute on Chronic? @ -Acute Uncomplicated (without systemic symptoms) or Complicated (systemic symptoms)? @ -Uncomplicated Side effects of treatment? @ -No Exacerbation, Progression, or Severe Exacerbation? @ -No Poses a threat to life or bodily function? How? (Chest pain, USA, MS, pneumonia, PE, COPD, DKA, ARF, appy, cholecystitis, CVA, Diverticulitis, Homicidal, Suicidal, threat to staff... and all critical care pts) @ -No - Lab Data Result diagrams: 12/20/22 23:14 12/20/22 23:14 Lab Results 12/20/22 12/20/22 12/20/22 Range/Units 23:08 23:14 23:14 WBC 8.1 (3.8-10.6) k/uL RBC 4.29 L (4.30-5.90) m/uL Hgb 14.3 (13.0-17.5) gm/dL Hct 40.9 (39.0-53.0) % MCV 95.2 (80.0-100.0) fL MCH 33.3 (25.0-35.0) pg MCHC 35.0 (31.0-37.0) g/dL RDW 12.8 (11.5-15.5) % Plt Count 180 (150-450) k/uL MPV 8.2 Neutrophils % 48 % Lymphocytes % 39 % Monocytes % 7 % Eosinophils % 2 % Basophils % 0 % Neutrophils # 3.9 (1.3-7.7) k/uL Lymphocytes # 3.2 (1.0-4.8) k/uL Monocytes # 0.5 (0-1.0) k/uL Eosinophils # 0.2 (0-0.7) k/uL Basophils # 0.0 (0-0.2) k/uL Sodium 135 L (137-145) mmol/L Potassium 3.9 (3.5-5.1) mmol/L Chloride 103 (98-107) mmol/L Carbon Dioxide 22 (22-30) mmol/L Anion Gap 10 mmol/L BUN 31 H (9-20) mg/dL Creatinine 1.60 H (0.66-1.25) mg/dL Est GFR (CKD-EPI)AfAm 53 (>60 ml/min/1.73 sqM) Est GFR (CKD-EPI)NonAf 46 (>60 ml/min/1.73 sqM) Glucose 93 (74-99) mg/dL POC Glucose (mg/dL) 102 (70-110) mg/dL POC Glu Drapery Hand ID Fredis Prakash Calcium 8.4 (8.4-10.2) mg/dL Magnesium 1.8 (1.6-2.3) mg/dL Total Bilirubin 0.7 (0.2-1.3) mg/dL AST 32 (17-59) U/L ALT 47 (4-49) U/L Alkaline Phosphatase 59 (38-126) U/L Troponin I (0.000-0.034) ng/mL Total Protein 5.8 L (6.3-8.2) g/dL Albumin 3.6 (3.5-5.0) g/dL Lipase 350 H (23-300) U/L Serum Alcohol 330 H* mg/dL 12/20/22 Range/Units 23:14 WBC (3.8-10.6) k/uL RBC (4.30-5.90) m/uL Hgb (13.0-17.5) gm/dL Hct (39.0-53.0) % MCV (80.0-100.0) fL MCH (25.0-35.0) pg MCHC (31.0-37.0) g/dL RDW (11.5-15.5) % Plt Count (150-450) k/uL MPV Neutrophils % % Lymphocytes % % Monocytes % % Eosinophils % % Basophils % % Neutrophils # (1.3-7.7) k/uL Lymphocytes # (1.0-4.8) k/uL Monocytes # (0-1.0) k/uL Eosinophils # (0-0.7) k/uL Basophils # (0-0.2) k/uL Sodium (137-145) mmol/L Potassium (3.5-5.1) mmol/L Chloride (98-107) mmol/L Carbon Dioxide (22-30) mmol/L Anion Gap mmol/L BUN (9-20) mg/dL Creatinine (0.66-1.25) mg/dL Est GFR (CKD-EPI)AfAm (>60 ml/min/1.73 sqM) Est GFR (CKD-EPI)NonAf (>60 ml/min/1.73 sqM) Glucose (74-99) mg/dL POC Glucose (mg/dL) (70-110) mg/dL POC Glu Drapery Hand ID Calcium (8.4-10.2) mg/dL Magnesium (1.6-2.3) mg/dL Total Bilirubin (0.2-1.3) mg/dL AST (17-59) U/L ALT (4-49) U/L Alkaline Phosphatase (38-126) U/L Troponin I <0.012 (0.000-0.034) ng/mL Total Protein (6.3-8.2) g/dL Albumin (3.5-5.0) g/dL Lipase (23-300) U/L Serum Alcohol mg/dL Disposition Clinical Impression: Alcoholic intoxication Disposition: HOME SELF-CARE Condition: Stable Instructions (If sedation given, give patient instructions): Alcohol Intox ication (ED) Is patient prescribed a controlled substance at d/c from ED?: No Referrals: Melvin Schroeder DO [Primary Care Provider] - 1-2 days Time of Disposition: 23:50
--- NOTE | 2022-12-20 23:57 | XR ---
EXAMINATION TYPE: XR chest 1V DATE OF EXAM: 12/20/2022 11:36 PM COMPARISON: Chest radiographs from 04/13/2017 TECHNIQUE: XR chest 1V Frontal view of the chest. CLINICAL INDICATION:Male, 62 years old with history of AMS; FINDINGS: Lungs/Pleura: Low lung volumes are present with a generalized hazy appearance of lungs.. There is no evidence of pleural effusion, focal consolidation, or pneumothorax. Pulmonary vascularity: Unremarkable. Heart/mediastinum: Cardiomediastinal silhouette is enlarged and stable. Musculoskeletal: No acute osseous pathology. IMPRESSION: Low lung volumes with a generalized hazy appearance which could represent atelectasis versus pulmonar y edema correlate with serum BNP.
[2022-12-21 00:05] LABS: Albumin 3.6 g/dL (3.5-5.0); Calcium 8.4 mg/dL (8.4-10.2); Magnesium 1.8 mg/dL (1.6-2.3); Potassium 3.9 mmol/L (3.5-5.1); Total Bilirubin 0.7 mg/dL (0.2-1.3); Total Protein 5.8 g/dL (6.3-8.2)
== END 2022-12-20 23:59 | disposition home or self-care (01) ==
LOC: EC 23:01
DX: F10.129 Alcohol abuse with intoxication, unspecified (principal); K21.9 Gastro-esophageal reflux disease without esophagitis; I10 Essential (primary) hypertension; I25.2 Old myocardial infarction; F12.90 Cannabis use, unspecified, uncomplicated; Z79.82 Long term (current) use of aspirin; Z79.899 Other long term (current) drug therapy; Z88.0 Allergy status to penicillin; Z91.040 Latex allergy status; Z87.891 Personal history of nicotine dependence
CPT/HCPCS: 36415; 93005; 80053; 83690; 83735; 84484; 85025; 71045; 70450; 99285; G0480; 80320

== ENCOUNTER → 2023-07-25 | Outpatient (CLI) | payer MEDICARE ==
[2023-07-25 16:10] LABS: Appearance,Urine Clear (Clear); Bilirubin,Urine Negative (Negative); Blood,Urine Negative (Negative); Color,Urine Yellow; Glucose,Urine (UA) Negative (Negative); Hyaline Casts,Urine 31 /lpf (0-2); Ketones,Urine Negative (Negative); Leukocyte Esterase,Urine Negative (Negative); Mucus,Urine Many /hpf; Nitrite,Urine Negative (Negative); PH, Urine 5.5 (5.0-8.0); Protein,Urine 1+ (Negative); RBC,Urine 2 /hpf (0-5); Urobilinogen,Urine <2.0 mg/dL (<2.0); WBC,Urine 2 /hpf (0-5)
[2023-07-25 21:13] LABS: ALT 48 U/L (10-49); AST 31 U/L (14-35); Albumin 4.7 g/dL (3.8-4.9); Albumin/Globulin Ratio 2.04 Ratio (1.60-3.17); Alkaline Phosphatase 86 U/L (41-126); BUN/Creat Ratio 19.67 Ratio (12.00-20.00); Blood Urea Nitrogen 23.6 mg/dL (9.0-27.0); Carbon Dioxide 22.6 mmol/L (21.6-31.8); Chloride 103 mmol/L (96-109); Chol/HDL Ratio 3.05 Ratio; Globulin 2.3 g/dL (1.6-3.3); Glucose 122 mg/dL (70-110); LDL Cholesterol,Calculated 52.3 mg/dL (0.0-131.0); Potassium 4.4 mmol/L (3.5-5.5); Prostate Specific Antigen 0.61 ng/mL (0.000-4.500); Sodium 141 mmol/L (135-145)
[2023-07-25 21:15] LABS: Basophils # (A) 0.04 X 10*3/uL (0.00-0.10); Basophils % (A) 0.6 %; Eosinophils # (A) 0.16 X 10*3/uL (0.04-0.35); Eosinophils % (A) 2.5 %; HCT 49.4 % (39.6-50.0); HGB 17.1 g/dL (13.0-17.0); Lymphocytes % (A) 20.5 %; MCH 32.8 pg (27.0-32.0); MCHC 34.6 g/dL (32.0-37.0); MCV 94.8 FL (80.0-97.0); Mean Platelet Volume 10.8 FL (9.5-12.2); Monocytes # (A) 0.44 X 10*3/uL (0.20-1.00); NRBC Per 100 WBC 0 X 10*3/uL (0.00-0.01); Neutrophils # (A) 4.38 X 10*3/uL (1.80-7.70); Neutrophils % (A) 69.2 %; Platelet Count 189 X 10*3/uL (140-440); RBC 5.21 X 10*6/uL (4.40-5.60); RDW 12.6 % (11.5-14.5); WBC 6.33 X 10*3/uL (4.50-10.00)
== END | disposition home or self-care (01) ==
LOC: LABWHC1 14:53
PROVIDERS: ATTEND Family Medicine
DX: Z00.01 Encounter for general adult medical examination with abnormal findings (principal); E78.5 Hyperlipidemia, unspecified; E66.9 Obesity, unspecified
CPT/HCPCS: 36415; 80053; 80061; 81001; 82306; 83036; 84153; 84443; 85025

== ENCOUNTER → 2024-07-28 | Outpatient (CLI) | payer MEDICARE ==
[2024-07-28 18:13] LABS: HCT 49.6 % (39.6-50.0); HGB 17.3 g/dL (13.0-17.0); MCH 32.6 pg (27.0-32.0); MCHC 34.9 g/dL (32.0-37.0); MCV 93.6 FL (80.0-97.0); Mean Platelet Volume 10.5 FL (9.5-12.2); NRBC Per 100 WBC 0 X 10*3/uL (0.00-0.01); Platelet Count 177 X 10*3/uL (140-440); RDW 12.9 % (11.5-14.5); WBC 6.61 X 10*3/uL (4.50-10.00)
[2024-07-28 18:48] LABS: ALT 75 U/L (10-49); AST 54 U/L (14-35); Albumin 4.6 g/dL (3.8-4.9); Alkaline Phosphatase 102 U/L (41-126); BUN/Creat Ratio 16.09 Ratio (12.00-20.00); Blood Urea Nitrogen 17.7 mg/dL (9.0-27.0); Calcium 9.9 mg/dL (8.7-10.3); Carbon Dioxide 24.2 mmol/L (21.6-31.8); Chloride 101 mmol/L (96-109); Chol/HDL Ratio 3.37 Ratio; Globulin 2.3 g/dL (1.6-3.3); Glucose 119 mg/dL (70-110); LDL Cholesterol,Calculated 52.9 mg/dL (0.0-131.0); Potassium 4.8 mmol/L (3.5-5.5); Prostate Specific Antigen 1.23 ng/mL (0.000-4.500); Sodium 137 mmol/L (135-145); Total Bilirubin 1.1 mg/dL (0.3-1.2); Total Protein 6.9 g/dL (6.2-8.2)
[2024-07-28 18:51] LABS: Appearance,Urine Clear (Clear); Bilirubin,Urine Small (Negative); Blood,Urine Negative (Negative); Color,Urine Dark Yellow (Yellow); Ketones,Urine Trace (Negative); Nitrite,Urine Negative (Negative); PH, Urine 5.5; Specific Gravity,Urine 1.026 (1.001-1.030)
[2024-07-28 20:35] LABS: Amorphous Sediment,Urine Present (None Seen); Bacteria,Urine None Seen (None Seen); Mucus,Urine Present (None Seen)
== END | disposition home or self-care (01) ==
LOC: LABWHC1 13:45
PROVIDERS: ATTEND Family Medicine
DX: I10 Essential (primary) hypertension (principal); E78.5 Hyperlipidemia, unspecified; N40.1 Benign prostatic hyperplasia with lower urinary tract symptoms; E66.01 Morbid (severe) obesity due to excess calories
CPT/HCPCS: 36415; 80053; 80061; 81001; 82306; 83036; 84153; 84443; 85027

== ENCOUNTER → 2024-08-06 | Outpatient (CLI) | payer MEDICARE ==
[2024-08-06 18:28] LABS: ALT 68 U/L (10-49); AST 41 U/L (14-35); GGT 46 U/L (0-73)
[2024-08-06 18:38] LABS: Hepatitis A Antibody IgM Nonreactive (Nonreactive); Hepatitis B Core IgM Nonreactive (Nonreactive); Hepatitis B Surface Antigen Nonreactive (Nonreactive); Hepatitis C IgG Antibody Nonreactive (Nonreactive)
== END | disposition home or self-care (01) ==
LOC: LABWHC1 13:14
PROVIDERS: ATTEND Family Medicine
DX: R74.8 Abnormal levels of other serum enzymes (principal)
CPT/HCPCS: 36415; 80074; 82977; 84450; 84460

== ENCOUNTER → 2024-08-11 | Outpatient (CLI) | payer MEDICARE ==
[2024-08-11 19:34] LABS: ALT 81 U/L (10-49); AST 53 U/L (14-35)
== END | disposition home or self-care (01) ==
LOC: LABWHC1 13:01
PROVIDERS: ATTEND Family Medicine
DX: R74.8 Abnormal levels of other serum enzymes (principal)
CPT/HCPCS: 36415; 84450; 84460

== ENCOUNTER → 2024-08-17 | Outpatient (CLI) | payer MEDICARE ==
[2024-08-17 21:07] LABS: Albumin 4.4 g/dL (3.8-4.9); Bilirubin, Conjugated 0.23 mg/dL (0.20-0.40); Bilirubin,Unconjugated 0.47 mg/dL (0.20-1.00); Globulin 2.2 g/dL (1.6-3.3); Total Bilirubin 0.7 mg/dL (0.3-1.2); Total Protein 6.6 g/dL (6.2-8.2)
== END | disposition home or self-care (01) ==
LOC: LABWHC1 12:18
PROVIDERS: ATTEND Family Medicine
DX: R94.5 Abnormal results of liver function studies (principal)
CPT/HCPCS: 36415; 80076

== ENCOUNTER → 2024-09-14 | Outpatient (CLI) | payer MEDICARE ==
--- NOTE | 2024-09-14 10:39 | US ---
EXAMINATION TYPE: US liver DATE OF EXAM: 09/14/2024 COMPARISON: NONE CLINICAL INDICATION: Male, 64 years old with history of K76.89 OTHR DIS OF LIVER; LFTs TECHNIQUE: Grayscale and color Doppler imaging of the right upper quadrant was performed. FINDINGS: EXAM MEASUREMENTS: Liver Length: 15.6 cm Gallbladder Wall: 0.2 cm CBD: 0.6 cm Right Kidney: 10.9x4.6x6.2 cm PIPE BUFFER NOTES: Pancreas: Distal body and Tail obscured by overlying bowel gas Liver: Increased attenuation and echogenicity. Gallbladder: wnl Evidence for sonographic Sandoval's sign: No CBD: Upper limits and poorly visualized. Right Kidney: wnl Exam limited by bowel gas and body habitus. Heterogeneous hyperechoic appearance of the liver. Evalua tion for focal masses is suboptimal due to the heterogeneity. No ascites. IMPRESSION: Heterogeneous hyperechoic appearance of liver consistent with diffuse fatty infiltration and/or under lying hepatocellular disease. [facility], , 09/14/2024 10:36 AM
== END | disposition home or self-care (01) ==
LOC: RADUSWWP 08:39
PROVIDERS: ATTEND Family Medicine
DX: K76.89 Other specified diseases of liver (principal); K76.0 Fatty (change of) liver, not elsewhere classified
CPT/HCPCS: 76705

== ENCOUNTER → 2024-11-30 | Outpatient (CLI) | payer MEDICARE ==
[2024-11-30 10:21] LABS: Basophils # (A) 0.04 X 10*3/uL (0.00-0.10); Basophils % (A) 0.7 %; Eosinophils # (A) 0.31 X 10*3/uL (0.04-0.35); Eosinophils % (A) 5.6 %; HCT 47.3 % (39.6-50.0); HGB 16.1 g/dL (13.0-17.0); Lymphocytes # (A) 1.88 X 10*3/uL (0.90-5.00); Lymphocytes % (A) 34.2 %; MCH 31.9 pg (27.0-32.0); MCV 93.7 FL (80.0-97.0); Mean Platelet Volume 10.4 FL (9.5-12.2); Monocytes # (A) 0.57 X 10*3/uL (0.20-1.00); Monocytes % (A) 10.4 %; NRBC Per 100 WBC 0 X 10*3/uL (0.00-0.01); Neutrophils # (A) 2.69 X 10*3/uL (1.80-7.70); Neutrophils % (A) 48.9 %; Platelet Count 168 X 10*3/uL (140-440); RBC 5.05 X 10*6/uL (4.40-5.60); RDW 13.2 % (11.5-14.5)
[2024-11-30 10:29] LABS: ALT 52 U/L (10-49); AST 34 U/L (14-35); Albumin 4.3 g/dL (3.8-4.9); Albumin/Globulin Ratio 2.05 Ratio (1.60-3.17); Alkaline Phosphatase 84 U/L (41-126); Blood Urea Nitrogen 19.7 mg/dL (9.0-27.0); Calcium 9.6 mg/dL (8.7-10.3); Carbon Dioxide 25.5 mmol/L (21.6-31.8); Chloride 103 mmol/L (96-109); Chol/HDL Ratio 3.22 Ratio; GGT 27 U/L (0-73); Globulin 2.1 g/dL (1.6-3.3); Glucose 120 mg/dL (70-110); LDL Cholesterol,Calculated 57.6 mg/dL (0.0-131.0); Potassium 4.2 mmol/L (3.5-5.5); Sodium 139 mmol/L (135-145); Total Bilirubin 0.7 mg/dL (0.3-1.2); Total Protein 6.4 g/dL (6.2-8.2)
== END | disposition home or self-care (01) ==
LOC: LABWHC1 07:09
PROVIDERS: ATTEND Family Medicine
DX: E11.9 Type 2 diabetes mellitus without complications (principal); E78.5 Hyperlipidemia, unspecified; R74.8 Abnormal levels of other serum enzymes
CPT/HCPCS: 36415; 80053; 80061; 82043; 82570; 82977; 83036; 85025